=== PATIENT | female | born 1970 | race Caucasian/White ===

== ENCOUNTER → 2016-06-09 | Outpatient (CLI) | payer BC ==
[~2016-06-09] MED LIST: ALBUAER19 INH; AMIT25TA9 PO; ASTN; CLIN1LOT5 TOP; CLON1TAB3 PO; COLE1TAB PO; FLUC150T PO; FLUO20CA36 PO; HYDR25TA4 PO; INSU1INJ41 SQ; LISD40CA PO; LISI-725 PO; MEDR10TA PO; METF-384 PO; MIRT15TA3 PO; MOME50SP5 NAE; MULT-506 PO; OMEG10007 PO; OMEP20CA59 PO; ONDA4TAB7 SL; PSEU60TA80 PO; SPIR50TA3 PO; TRET0.1C42 TOP; VALA500T39 PO; VNTHFA/IN INH; [UNRECOGNIZED DRUG - CODE] TD
--- NOTE | 2016-06-09 11:31 | DIAGNOSTIC IMAGING REPORT ---
BILIARY ULTRASOUND CLINICAL HISTORY: NON INFECTIVE GASTROENTERITIS COMPARISON STUDY: CT scan dated 10/20/2014 FINDINGS: The study is limited from a technical standpoint secondary to the patient's large body habitus. The pancreas appear normal as visualized but visualization was limited. There is no right-sided hydronephrosis. The liver appears enlarged with increased echogenicity. It was difficult to penetrate. There are no focal hepatic masses. No gallstones are identified. There is no ductal dilatation. The common bile duct measured 4 mm. There is no right-sided hydronephrosis. IMPRESSION: 1. Moderately limited study from a technical standpoint 2. No gallstones identified. No evidence of ductal dilatation 3. Increased hepatic echogenicity. Hepatomegaly. Electronically signed by: Renan Fitzgerald M.D. 06/09/2016 11:29 AM Dictated Date/Time: 06/09/2016 11:27 AM
== END | disposition home or self-care (01) ==
LOC: C.ULTR 10:46
PROVIDERS: ATTEND Family Medicine
DX: K52.9 Noninfective gastroenteritis and colitis, unspecified (principal); R74.0 Nonspecific elevation of levels of transaminase and lactic acid dehydrogenase [LDH]; E28.2 Polycystic ovarian syndrome

== ENCOUNTER → 2016-06-11 | Outpatient (CLI) | payer BC | END | disposition home or self-care (01) | LOC: C.PAPS 10:24 | PROVIDERS: ATTEND Obstetrics & Gynecology | DX: Z11.3 Encounter for screening for infections with a predominantly sexual mode of transmission (principal) ==

== ENCOUNTER → 2016-07-18 | Outpatient (CLI) | payer BC ==
[~2016-07-18] MED LIST changes: -ASTN; +BUSP15TA70 PO; -FLUO20CA36 PO; -LISD40CA PO; -MIRT15TA3 PO; -ONDA4TAB7 SL; -[UNRECOGNIZED DRUG - CODE] TD
== END | disposition home or self-care (01) ==
LOC: C.LAB1850 07:03
PROVIDERS: ATTEND Internal Medicine Endocrinology, Diabetes & Metabolism
DX: E28.2 Polycystic ovarian syndrome (principal)

== ENCOUNTER → 2016-08-07 | Day surgery (SDC) | payer BC ==
[2016-07-11 13:08] VITALS: Ht 167.6 cm; Wt 138.6 kg
[~2016-08-07] VITALS: Ht 167.6 cm; Wt 138.6 kg
[~2016-08-07] MED LIST changes: +ATROPINE SULFATE 0.1 MG/ML 5ML SYR IV PRN; +EpHEDrine SULFATE INJ 50 MG/ML AMP IV PRN; +LIDOCAINE HCL 2% 2 ML VIAL (20MG/ML) ONE; +PROPOFOL IV EMULSION 10 MG/ML 20 ML VIAL IV ONE; +SODIUM CHLORIDE 0.9% 500ML 500 ML IV ONE
[2016-08-07 13:19] VITALS: TEMP 37.1
--- NOTE | 2016-08-07 13:56 | Endo History and Physical ---
History & Physical Date of Service: Aug 07, 2016. Chief Complaint: DYSPHAGIA Referring Physician: DR. GARCIA History of Present Illness dysphagia; diarrhea Past Medical History Asthma, Anxiety, Gynecological Problems, High Cholesterol, Sleep Apnea, Depression Past Surgical History Hx Cardiac Surgery: No Hx Internal Defibrillator: No Hx Pacemaker: No Hx Abdominal Surgery: Yes (SPLEENECTOMY, LAPAROSCOPIES) Hx of Implantable Prosthesis: No Hx Post-Op Nausea and Vomiting: No Hx Cancer Surgery: No Hx Thoracic Surgery: No Hx Orthopedic: No Hx Urinary Tract Surgery: No Family History IBD Social History Smoking Status: Never Smoker Hx Substance Use: No Hx Alcohol Use: Yes (OCCASIONAL) Allergies Coded Allergies: Penicillins (Verified Allergy, Severe, FACIAL SWELLING, RASH, 08/07/16) Current Medications Reported Home Medications Medications Dose Route/Sig Max Daily Dose Days Date Category Mucinex D (Pseudoephedrine-Guaifenesin) 1 Tab Tab 1 Tab PO BID 10 08/07/16 Reported Tretinoin 0.1 % Cre 1 Appln TOP HS 07/11/16 Reported Clindamycin Phosphate (Clindamycin Phosphate (Topical) 1 % Lot 1 Appln TOP BID 07/11/16 Reported Elavil (Amitriptyline Hcl) 25 Mg Tab 25 Mg PO HS 07/11/16 Reported Klonopin (Clonazepam) 1 Mg Tab 2 Tabs PO HS 07/11/16 Reported Diflucan (Fluconazole) 150 Mg Tab 150 Mg PO UD PRN 07/11/16 Reported Zestril (Lisinopril) 20 Mg Tab 20 Mg PO QAM 07/11/16 Reported Hctz (Hydrochlorothiazide) 25 Mg Tab 25 Mg PO QAM 07/11/16 Reported Glucophage (Metformin Hcl) 1,000 Mg Tab 1,000 Mg PO BID 10/20/14 Reported [place]-3 (Fish Oil) 1 Ea Cap 1 Cap PO AFTERNOON 09/27/14 Reported Ventolin Inhaler (Albuterol) Aers 2 Puffs INH BID PRN 09/27/14 Reported Multivitamin (Multivitamins) Tab 1 Tab PO AFTERNOON 09/27/14 Reported Aldactone (Spironolactone) 50 Mg Tab 50 Mg PO BID 09/25/14 Reported Valtrex (Valacyclovir Hcl) 500 Mg Tab 500 Mg PO BID 09/25/14 Reported Prilosec (Omeprazole) 20 Mg Capcr 20 Mg PO BID 09/25/14 Reported Nasonex (Mometasone Furoate) [place] 1-2 Sprays REBECCA QAM 09/25/14 Reported Vital Signs Weight (Kilograms): 138.64 Height (Feet): 5 Height (Inches): 6 Date Time Temp Pulse Resp B/P Pulse Ox O2 Delivery O2 Flow Rate FiO2 08/07/16 13:19 37.1 102 20 109/54 94 Room Air Physical Exam AAOx3 Nls1s2 Lungs CTA Abd soft NT/ND + BS - CCe Assessment and Plan EGD today with bx
--- NOTE | 2016-08-07 14:26 | GI REPORT ---
Procedure Date: 08/07/2016 2:02 PM Procedure: Upper GI endoscopy Indications: Esophageal dysphagia, Diarrhea Medicines: Propofol per Anesthesia Complications: No immediate complications. Estimated blood loss: Minimal. Estimated Blood Loss: Estimated blood loss was minimal. Procedure: Pre-Anesthesia Assessment: - Prior to the procedure, a History and Physical was performed, and patient medications and allergies were reviewed. The patient's tolerance of previous anesthesia was also reviewed. The risks and benefits of the procedure and the sedation options and risks were discussed with the patient. All questions were answered, and informed consent was obtained. Prior Anticoagulants: The patient has taken no previous anticoagulant or antiplatelet agents. ASA Grade Assessment: III - A patient with severe systemic disease. After reviewing the risks and benefits, the patient was deemed in satisfactory condition to undergo the procedure. After obtaining informed consent, the endoscope was passed under direct vision. Throughout the procedure, the patient's blood pressure, pulse, and oxygen saturations were monitored continuously. The On-site loaner was introduced through the mouth, and advanced to the second part of duodenum. The upper GI endoscopy was accomplished without difficulty. The patient tolerated the procedure well. Findings: The upper third of the esophagus and middle third of the esophagus were normal. The esophagus and gastroesophageal junction were examined with white light. 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 These changes involved the mucosa at the upper extent of the gastric folds (36 cm from the incisors) extending to the Z-line (35 cm from the incisors). Hiatal narrowing was identified at 37 cm. The maximum longitudinal extent of these esophageal mucosal changes was 1 cm in length. Biopsies were taken with a cold forceps for histology. Estimated blood loss was minimal. Verification of patient identification for the specimen was done by the physician and electronics repair technician using the patient's name and medical record number. Localized mild inflammation characterized by erythema was found in the gastric antrum. Biopsies were taken with a cold forceps for histology. The examined duodenum was normal. Biopsies for histology were taken with a cold forceps for evaluation of celiac disease. Estimated blood loss was minimal. Verification of patient identification for the specimen was done by the physician and electronics repair technician using the patient's name and medical record number. The cardia and gastric fundus were normal on retroflexion. Impression: - Normal upper third of esophagus and middle third of esophagus. 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 Biopsied. - Gastritis. Biopsied. - Normal examined duodenum. Biopsied. Recommendation: - Discharge patient to home (ambulatory). - Patient has a contact number available for emergencies. The signs and symptoms of potential delayed complications were discussed with the patient. Return to normal activities tomorrow. Written discharge instructions were provided to the patient. - Resume regular diet. - Await pathology results. - Continue present medications. - Return to referring physician as previously scheduled. MD Nahum Javier MD 08/07/2016 2:25:00 PM This report has been signed electronically. Note Initiated On: 08/07/2016 2:02 PM I attest to the content of the Intraoperative Record and orders documented therein, exceptions below
--- NOTE | 2016-08-07 14:29 | Discharge Instructions ---
Endoscopy Patient Instructions Date / Procedure(s) Performed Aug 07, 2016. EGD Allergy Information Coded Allergies: Penicillins (Verified Allergy, Severe, FACIAL SWELLING, RASH, 08/07/16) Discharge Date / Findings Aug 07, 2016. possible SSBE; gastritis Medication Instructions Restart Stopped Medication(s): Reported Home Medications Medications Dose Route/Sig Max Daily Dose Days Date Category Mucinex D (Pseudoephedrine-Guaifenesin) 1 Tab Tab 1 Tab PO BID 10 08/07/16 Reported Tretinoin 0.1 % Cre 1 Appln TOP HS 07/11/16 Reported Clindamycin Phosphate (Clindamycin Phosphate (Topical) 1 % Lot 1 Appln TOP BID 07/11/16 Reported Elavil (Amitriptyline Hcl) 25 Mg Tab 25 Mg PO HS 07/11/16 Reported Klonopin (Clonazepam) 1 Mg Tab 2 Tabs PO HS 07/11/16 Reported Diflucan (Fluconazole) 150 Mg Tab 150 Mg PO UD PRN 07/11/16 Reported Zestril (Lisinopril) 20 Mg Tab 20 Mg PO QAM 07/11/16 Reported Hctz (Hydrochlorothiazide) 25 Mg Tab 25 Mg PO QAM 07/11/16 Reported Glucophage (Metformin Hcl) 1,000 Mg Tab 1,000 Mg PO BID 10/20/14 Reported [place]-3 (Fish Oil) 1 Ea Cap 1 Cap PO AFTERNOON 09/27/14 Reported Ventolin Inhaler (Albuterol) Aers 2 Puffs INH BID PRN 09/27/14 Reported Multivitamin (Multivitamins) Tab 1 Tab PO AFTERNOON 09/27/14 Reported Aldactone (Spironolactone) 50 Mg Tab 50 Mg PO BID 09/25/14 Reported Valtrex (Valacyclovir Hcl) 500 Mg Tab 500 Mg PO BID 09/25/14 Reported Prilosec (Omeprazole) 20 Mg Capcr 20 Mg PO BID 09/25/14 Reported Nasonex (Mometasone Furoate) [place] 1-2 Sprays REBECCA QAM 09/25/14 Reported Reported Home Medications Medications Dose Route/Sig Max Daily Dose Days Date Category Mucinex D (Pseudoephedrine-Guaifenesin) 1 Tab Tab 1 Tab PO BID 10 08/07/16 Reported Tretinoin 0.1 % Cre 1 Appln TOP HS 07/11/16 Reported Clindamycin Phosphate (Clindamycin Phosphate (Topical) 1 % Lot 1 Appln TOP BID 07/11/16 Reported Elavil (Amitriptyline Hcl) 25 Mg Tab 25 Mg PO HS 07/11/16 Reported Klonopin (Clonazepam) 1 Mg Tab 2 Tabs PO HS 07/11/16 Reported Diflucan (Fluconazole) 150 Mg Tab 150 Mg PO UD PRN 07/11/16 Reported Zestril (Lisinopril) 20 Mg Tab 20 Mg PO QAM 07/11/16 Reported Hctz (Hydrochlorothiazide) 25 Mg Tab 25 Mg PO QAM 07/11/16 Reported Glucophage (Metformin Hcl) 1,000 Mg Tab 1,000 Mg PO BID 10/20/14 Reported [place]-3 (Fish Oil) 1 Ea Cap 1 Cap PO AFTERNOON 09/27/14 Reported Ventolin Inhaler (Albuterol) Aers 2 Puffs INH BID PRN 09/27/14 Reported Multivitamin (Multivitamins) Tab 1 Tab PO AFTERNOON 09/27/14 Reported Aldactone (Spironolactone) 50 Mg Tab 50 Mg PO BID 09/25/14 Reported Valtrex (Valacyclovir Hcl) 500 Mg Tab 500 Mg PO BID 09/25/14 Reported Prilosec (Omeprazole) 20 Mg Capcr 20 Mg PO BID 09/25/14 Reported Nasonex (Mometasone Furoate) [place] 1-2 Sprays REBECCA QA 09/25/14 Reported Reported Home Medications Medications Dose Route/Sig Max Daily Dose Days Date Category Mucinex D (Pseudoephedrine-Guaifenesin) 1 Tab Tab 1 Tab PO BID 10 08/07/16 Reported Tretinoin 0.1 % Cre 1 Appln TOP HS 07/11/16 Reported Clindamycin Phosphate (Clindamycin Phosphate (Topical) 1 % Lot 1 Appln TOP BID 07/11/16 Reported Elavil (Amitriptyline Hcl) 25 Mg Tab 25 Mg PO HS 07/11/16 Reported Klonopin (Clonazepam) 1 Mg Tab 2 Tabs PO HS 07/11/16 Reported Diflucan (Fluconazole) 150 Mg Tab 150 Mg PO UD PRN 07/11/16 Reported Zestril (Lisinopril) 20 Mg Tab 20 Mg PO QAM 07/11/16 Reported Hctz (Hydrochlorothiazide) 25 Mg Tab 25 Mg PO QAM 07/11/16 Reported Glucophage (Metformin Hcl) 1,000 Mg Tab 1,000 Mg PO BID 10/20/14 Reported [place]-3 (Fish Oil) 1 Ea Cap 1 Cap PO AFTERNOON 09/27/14 Reported Ventolin Inhaler (Albuterol) Aers 2 Puffs INH BID PRN 09/27/14 Reported Multivitamin (Multivitamins) Tab 1 Tab PO AFTERNOON 09/27/14 Reported Aldactone (Spironolactone) 50 Mg Tab 50 Mg PO BID 09/25/14 Reported Valtrex (Valacyclovir Hcl) 500 Mg Tab 500 Mg PO BID 09/25/14 Reported Prilosec (Omeprazole) 20 Mg Capcr 20 Mg PO BID 09/25/14 Reported Nasonex (Mometasone Furoate) [place] 1-2 Sprays REBECCA QAM 09/25/14 Reported Provider Instructions Activity Restrictions - No exercising or heavy lifting for 24 hours. - Do not drink alcohol the day of the procedure. - Do not drive a car or operate machinery until the day after the procedure. - Do not make any important decisions or sign important papers in 24 hours after the procedure. Following Day: - Return to full activity which may include returning to work/school. Diet Start your diet with liquids and light foods (jello, soup, juice, toast). Then eat your usual diet if not nauseated. Treatment For Common After Affects For mild abdominal pain, bloating, or excessive gas: - Rest - Eat lightly - Lie on right side Follow-Up Information Follow-up with DR. GARCIA as scheduled Anesthesia Information What You Should Know You have had a procedure that required some medicine to reduce anxiety and discomfort. This treatment is called moderate sedation. After receiving the treatment, you may be sleepy, but you will be able to breathe on your own. The effects of the treatment may last for several hours. Follow these instructions along with Activity/Diet recommendations noted above: * Do NOT do anything where dizziness or clumsiness would be dangerous. * Rest quietly at home today, then you can be up and about tomorrow. * Have a responsible person stay with you the rest of today. * You may have had an I.V. today. If so, you may take the dressing off later today. Recommendations Call your doctor if: * Trouble breathing * Continuous vomiting for more than 24 hours * Temperature above 101 degrees * Severe abdominal pain or bloating * Pain not relieved by pain medicine ordered * There is increased drainage or redness from any incision * A large amount of rectal bleeding greater than 2-3 tablespoons. (If you had a polyp/s removed or have hemorrhoids, a small amount of blood - from the rectum is to be expected.) * You have any unanswered questions or concerns. IN THE EVENT OF A SERIOUS EMERGENCY, GO TO THE NEAREST EMERGENCY ROOM Your discharge instructions were prepared by provider Nahum Agee. Patient Instructions Signature Page Nicki Blanchard Patient (or Guardian) Signature/Date: I have read and understand the instructions given to me by my caregivers. Caregiver/RN/Doctor Signature/Date: The above-named patient and/or guardian has received patient instructions on this date. + Original Patient Signature Page (only) stays with chart. Please make copy for patient.
--- NOTE | 2016-08-07 14:46 | Anesthesiology Progress Note ---
Anesthesia Post Op Note Date & Time Aug 07, 2016 at 14:45 Vital Signs Pain Intensity: 0 Vital Signs Past 12 Hours Date Time Temp Pulse Resp B/P Pulse Ox O2 Delivery O2 Flow Rate FiO2 08/07/16 14:25 101 20 95/51 95 Room Air 08/07/16 13:19 37.1 102 20 109/54 94 Room Air Notes Mental Status: alert / awake / arousable, participated in evaluation Pt Amnestic to Procedure: Yes Nausea / Vomiting: adequately controlled Pain: adequately controlled Airway Patency, RR, SpO2: stable & adequate BP & HR: stable & adequate Hydration State: stable & adequate Anesthetic Complications: no major complications apparent
[2016-08-07 14:54] VITALS: BP 99/66; PULSE 97; O2SAT 95
== END | disposition home or self-care (01) ==
LOC: C.GI 12:53
PROVIDERS: ATTEND Internal Medicine Gastroenterology
DX: R13.10 Dysphagia, unspecified (principal); R19.7 Diarrhea, unspecified; K29.60 Other gastritis without bleeding; E78.00 Pure hypercholesterolemia, unspecified; G47.30 Sleep apnea, unspecified; F32.9 Major depressive disorder, single episode, unspecified; J45.909 Unspecified asthma, uncomplicated

== ENCOUNTER → 2016-09-16 | Outpatient (CLI) | payer BC ==
[~2016-09-16] MED LIST changes: -ATROPINE SULFATE 0.1 MG/ML 5ML SYR IV PRN; -EpHEDrine SULFATE INJ 50 MG/ML AMP IV PRN; -LIDOCAINE HCL 2% 2 ML VIAL (20MG/ML) ONE; -MEDR10TA PO; -PROPOFOL IV EMULSION 10 MG/ML 20 ML VIAL IV ONE; -SODIUM CHLORIDE 0.9% 500ML 500 ML IV ONE
== END | disposition home or self-care (01) ==
LOC: C.LAB1850 11:37
PROVIDERS: ATTEND Obstetrics & Gynecology
DX: N91.2 Amenorrhea, unspecified (principal)

== ENCOUNTER → 2016-09-29 | Outpatient (CLI) | payer BC ==
--- NOTE | 2016-09-29 10:19 | DIAGNOSTIC IMAGING REPORT ---
RIGHT ANKLE MIN 3 VIEWS ROUTINE CLINICAL HISTORY: RIGHT ANKLE PAIN Right pain COMPARISON: None. DISCUSSION: Small heel spur. Soft tissue edema adjacent to the lateral malleolus. No acute bony abnormality. Ankle mortise is aligned anatomically . IMPRESSION: Mild soft tissue edema. Small heel spur. No acute bony abnormality. Electronically signed by: Duncan Meyers M.D. 09/29/2016 10:18 AM Dictated Date/Time: 09/29/2016 10:17 AM
== END | disposition home or self-care (01) ==
LOC: C.LAB1850 07:00
PROVIDERS: ATTEND Internal Medicine Endocrinology, Diabetes & Metabolism
DX: M25.571 Pain in right ankle and joints of right foot (principal); F41.9 Anxiety disorder, unspecified; F32.9 Major depressive disorder, single episode, unspecified; R73.9 Hyperglycemia, unspecified; I10 Essential (primary) hypertension; E11.65 Type 2 diabetes mellitus with hyperglycemia; R79.89 Other specified abnormal findings of blood chemistry; E78.5 Hyperlipidemia, unspecified; M77.31 Calcaneal spur, right foot

== ENCOUNTER → 2016-09-30 | Outpatient (CLI) | payer BC ==
[2016-09-30 12:30] LABS: HEMATOCRIT 40.5 % (37-47)
[2016-09-30 13:08] LABS: ALB/GLOB RATIO 0.8 (0.9-2); ALKALINE PHOSPHATASE 100 U/L (45-117); ALT/SGPT 68 U/L (12-78); AST/SGOT 52 U/L (15-37); BLOOD UREA NITROGEN 13 mg/dl (7-18); BUN/CREATININE RATIO 19.2 (10-20); CARBON DIOXIDE 26 mmol/L (21-32); CHLORIDE 104 mmol/L (98-107); CHOLESTEROL 209 mg/dl (0-200); CHOLESTEROL/HDL RATIO 4.3; GLUCOSE 128 mg/dl (70-99); HDL CHOLESTEROL 49 mg/dl; LDL CHOLESTEROL CALCULATED 122 mg/dl; POTASSIUM 4.1 mmol/L (3.5-5.1); SODIUM 139 mmol/L (136-145); TRIGLYCERIDES 188 mg/dl (0-150); VERY LOW DENSITY LIPOPROT CALC 38 mg/dl
[2016-09-30 13:22] LABS: ESTIMATED AVERAGE GLUCOSE 197 mg/dl; HA1C FLAG Normal (Normal)
== END | disposition home or self-care (01) ==
LOC: C.LAB1850 09:36
PROVIDERS: ATTEND Internal Medicine Endocrinology, Diabetes & Metabolism
DX: I10 Essential (primary) hypertension (principal); R79.89 Other specified abnormal findings of blood chemistry; E11.65 Type 2 diabetes mellitus with hyperglycemia

== ENCOUNTER → 2016-12-31 | Outpatient (CLI) | payer BC ==
--- NOTE | 2017-01-01 12:38 | MAMMOGRAPHY REPORT ---
BILATERAL DIGITAL SCREENING MAMMOGRAM TOMOSYNTHESIS WITH CAD: 12/31/2016 CLINICAL HISTORY: Routine screening. Patient has no complaints. TECHNIQUE: Breast tomosynthesis in addition to standard 2D mammography was performed. Current study was also evaluated with a Computer Aided Detection (CAD) system. COMPARISON: Comparison is made to exams dated: 08/13/2011 mammogram, 12/08/2012 mammogram, 12/14/2013 giana mogram, 12/20/2014 mammogram, and 12/26/2015 mammogram - [facility]. BREAST COMPOSITION: The tissue of both breasts is almost entirely fatty. FINDINGS: No suspicious mass, architectural distortion or cluster of microcalcifications is seen. IMPRESSION: ACR BI-RADS CATEGORY 1: NEGATIVE There is no mammographic evidence of malignancy. A 1 year screening mammogram is recommended. The pa tient will receive written notification of the results. Approximately 10% of breast cancers are not detected with mammography. A negative mammographic report should not delay biopsy if a clinically suggestive mass is present. Nany tolentino/penannabelle:12/31/2016 17:10:27 Dye House Helper: Ericka ROBERT(Lindsay)(M), [facility] letter sent: Normal 1/2 BI-RADS Code: ACR BI-RADS Category 1: Negative
== END | disposition home or self-care (01) ==
LOC: C.MAMM 16:50
PROVIDERS: ATTEND Family Medicine
DX: Z12.31 Encounter for screening mammogram for malignant neoplasm of breast (principal)

== ENCOUNTER → 2017-01-21 | Day surgery (SDC) | payer BC ==
[2017-01-05 12:58] VITALS: Ht 167.6 cm; Wt 138.6 kg
[~2017-01-21] VITALS: Ht 167.6 cm; Wt 138.6 kg
[~2017-01-21] MED LIST changes: -ALBUAER19 INH; +LIDOCAINE HCL 2% 2 ML VIAL (20MG/ML) ONE; -MOME50SP5 NAE; +PROPOFOL IV EMULSION 10 MG/ML 20 ML VIAL IV ONE; -PSEU60TA80 PO; +SODIUM CHLORIDE 0.9% 500ML 500 ML IV ONE
--- NOTE | 2017-01-21 15:12 | Endo History and Physical ---
History & Physical Date of Service: Jan 21, 2017. Chief Complaint: change in bowel habits Referring Physician: Emmett Fuentes History of Present Illness change in bowel habits Past Medical History Asthma, Anxiety, Gynecological Problems, High Cholesterol, Sleep Apnea, Depression Past Surgical History Hx Cardiac Surgery: No Hx Internal Defibrillator: No Hx Pacemaker: No Hx Abdominal Surgery: Yes (SPLEENECTOMY, LAPAROSCOPIES) Hx Post-Op Nausea and Vomiting: No Hx Cancer Surgery: No Hx Thoracic Surgery: No Hx Orthopedic: No Hx Urinary Tract Surgery: No Family History IBD Social History Smoking Status: Never Smoker Hx Substance Use: No Hx Alcohol Use: Yes (OCCASIONAL) Allergies Coded Allergies: Penicillins (Verified Allergy, Severe, FACIAL SWELLING, RASH, 01/21/17) Current Medications Reported Home Medications Medications Dose Route/Sig Max Daily Dose Days Date Category Buspar (Buspirone Hcl) 15 Mg Tab 1 Tab PO BID 30 01/21/17 Reported Ventolin Hfa (Albuterol) 200 Puffs/88002 Mcg Aers 2-4 Puffs INH Q6H PRN 01/05/17 Reported Colestid (Colestipol Hcl) 1 Gm Tab 1 Gm PO QAM 01/05/17 Reported [place] 100/33 100-33 Unt-Mcg/ml (Insulin Glargine-Lixisenatide) 1 Inj Inj 1 Dose SQ QAM 01/05/17 Reported Tretinoin 0.1 % Cre 1 Appln TOP HS 07/11/16 Reported Clindamycin Phosphate (Clindamycin Phosphate (Topical) 1 % Lot 1 Appln TOP BID 07/11/16 Reported Elavil (Amitriptyline Hcl) 25 Mg Tab 25 Mg PO HS 07/11/16 Reported Klonopin (Clonazepam) 1 Mg Tab 2 Tabs PO HS 07/11/16 Reported Diflucan (Fluconazole) 150 Mg Tab 150 Mg PO UD PRN 07/11/16 Reported Zestril (Lisinopril) 20 Mg Tab 20 Mg PO QAM 07/11/16 Reported Hctz (Hydrochlorothiazide) 25 Mg Tab 25 Mg PO QAM 07/11/16 Reported Glucophage (Metformin Hcl) 1,000 Mg Tab 1,000 Mg PO BID 10/20/14 Reported [place]-3 (Fish Oil) 1 Ea Cap 1 Cap PO AFTERNOON 09/27/14 Reported Multivitamin (Multivitamins) Tab 1 Tab PO QAM 09/27/14 Reported Aldactone (Spironolactone) 50 Mg Tab 50 Mg PO BID 09/25/14 Reported Valtrex (Valacyclovir Hcl) 500 Mg Tab 500 Mg PO BID 09/25/14 Reported Prilosec (Omeprazole) 20 Mg Capcr 20 Mg PO BID 09/25/14 Reported Vital Signs Weight (Kilograms): 138.64 Height (Feet): 5 Height (Inches): 6 Date Time Temp Pulse Resp B/P (MAP) Pulse Ox O2 Delivery O2 Flow Rate FiO2 01/21/17 14:05 36.6 112 20 138/66 (90) 95 Room Air Physical Exam General Appearance: WD/WN, no apparent distress Respiratory/Chest: Auscultation: breath sounds normal Cardiovascular: Heart Auscultation: RRR Abdomen: Bowel Sounds: normal Inspection & Palpation: soft, non-distended, no tenderness, guarding & rebound Assessment and Plan AAOx3. Consent obtained colonoscopy with biopsies
--- NOTE | 2017-01-21 15:53 | Discharge Instructions ---
Endoscopy Patient Instructions Date / Procedure(s) Performed Jan 21, 2017. Colonoscopy Allergy Information Coded Allergies: Penicillins (Verified Allergy, Severe, FACIAL SWELLING, RASH, 01/21/17) Discharge Date / Findings Jan 21, 2017. small polyp rectum . removed random colon bx Medication Instructions Stopped Medication(s): Meds stopped on 01/18/17: Metformin [place]on 3 Multivitamin Aldactone Restart Stopped Medication(s): Reported Home Medications Medications Dose Route/Sig Max Daily Dose Days Date Category Buspar (Buspirone Hcl) 15 Mg Tab 1 Tab PO BID 30 01/21/17 Reported Ventolin Hfa (Albuterol) 200 Puffs/21317 Mcg Aers 2-4 Puffs INH Q6H PRN 01/05/17 Reported Colestid (Colestipol Hcl) 1 Gm Tab 1 Gm PO QAM 01/05/17 Reported Soliqua 100/33 100-33 Unt-Mcg/ml (Insulin Glargine-Lixisenatide) 1 Inj Inj 1 Dose SQ QAM 01/05/17 Reported Tretinoin 0.1 % Cre 1 Appln TOP HS 07/11/16 Reported Clindamycin Phosphate (Clindamycin Phosphate (Topical) 1 % Lot 1 Appln TOP BID 07/11/16 Reported Elavil (Amitriptyline Hcl) 25 Mg Tab 25 Mg PO HS 07/11/16 Reported Klonopin (Clonazepam) 1 Mg Tab 2 Tabs PO HS 07/11/16 Reported Diflucan (Fluconazole) 150 Mg Tab 150 Mg PO UD PRN 07/11/16 Reported Zestril (Lisinopril) 20 Mg Tab 20 Mg PO QAM 07/11/16 Reported Hctz (Hydrochlorothiazide) 25 Mg Tab 25 Mg PO QAM 07/11/16 Reported Glucophage (Metformin Hcl) 1,000 Mg Tab 1,000 Mg PO BID 10/20/14 Reported Afton-3 (Fish Oil) 1 Ea Cap 1 Cap PO AFTERNOON 09/27/14 Reported Multivitamin (Multivitamins) Tab 1 Tab PO QAM 09/27/14 Reported Aldactone (Spironolactone) 50 Mg Tab 50 Mg PO BID 09/25/14 Reported Valtrex (Valacyclovir Hcl) 500 Mg Tab 500 Mg PO BID 09/25/14 Reported Prilosec (Omeprazole) 20 Mg Capcr 20 Mg PO BID 09/25/14 Reported Provider Instructions Activity Restrictions - No exercising or heavy lifting for 24 hours. - Do not drink alcohol the day of the procedure. - Do not drive a car or operate machinery until the day after the procedure. - Do not make any important decisions or sign important papers in 24 hours after the procedure. Following Day: - Return to full activity which may include returning to work/school. Diet Start your diet with liquids and light foods (jello, soup, juice, toast). Then eat your usual diet if not nauseated. Treatment For Common After Affects For mild abdominal pain, bloating, or excessive gas: - Rest - Eat lightly - Lie on right side Reported Home Medications Medications Dose Route/Sig Max Daily Dose Days Date Category Buspar (Buspirone Hcl) 15 Mg Tab 1 Tab PO BID 30 01/21/17 Reported Ventolin Hfa (Albuterol) 200 Puffs/95790 Mcg Aers 2-4 Puffs INH Q6H PRN 01/05/17 Reported Colestid (Colestipol Hcl) 1 Gm Tab 1 Gm PO QAM 01/05/17 Reported Soliqua 100/33 100-33 Unt-Mcg/ml (Insulin Glargine-Lixisenatide) 1 Inj Inj 1 Dose SQ QAM 01/05/17 Reported Tretinoin 0.1 % Cre 1 Appln TOP HS 07/11/16 Reported Clindamycin Phosphate (Clindamycin Phosphate (Topical) 1 % Lot 1 Appln TOP BID 07/11/16 Reported Elavil (Amitriptyline Hcl) 25 Mg Tab 25 Mg PO HS 07/11/16 Reported Klonopin (Clonazepam) 1 Mg Tab 2 Tabs PO HS 07/11/16 Reported Diflucan (Fluconazole) 150 Mg Tab 150 Mg PO UD PRN 07/11/16 Reported Zestril (Lisinopril) 20 Mg Tab 20 Mg PO QAM 07/11/16 Reported Hctz (Hydrochlorothiazide) 25 Mg Tab 25 Mg PO QAM 07/11/16 Reported Glucophage (Metformin Hcl) 1,000 Mg Tab 1,000 Mg PO BID 10/20/14 Reported Afton-3 (Fish Oil) 1 Ea Cap 1 Cap PO AFTERNOON 09/27/14 Reported Multivitamin (Multivitamins) Tab 1 Tab PO QAM 09/27/14 Reported Aldactone (Spironolactone) 50 Mg Tab 50 Mg PO BID 09/25/14 Reported Valtrex (Valacyclovir Hcl) 500 Mg Tab 500 Mg PO BID 09/25/14 Reported Prilosec (Omeprazole) 20 Mg Capcr 20 Mg PO BID 09/25/14 Reported Follow-Up Information Follow-up with Emmett Fuentes as scheduled Anesthesia Information What You Should Know You have had a procedure that required some medicine to reduce anxiety and discomfort. This treatment is called moderate sedation. After receiving the treatment, you may be sleepy, but you will be able to breathe on your own. The effects of the treatment may last for several hours. Follow these instructions along with Activity/Diet recommendations noted above: * Do NOT do anything where dizziness or clumsiness would be dangerous. * Rest quietly at home today, then you can be up and about tomorrow. * Have a responsible person stay with you the rest of today. * You may have had an I.V. today. If so, you may take the dressing off later today. Recommendations Call your doctor if: * Trouble breathing * Continuous vomiting for more than 24 hours * Temperature above 101 degrees * Severe abdominal pain or bloating * Pain not relieved by pain medicine ordered * There is increased drainage or redness from any incision * A large amount of rectal bleeding greater than 2-3 tablespoons. (If you had a polyp/s removed or have hemorrhoids, a small amount of blood - from the rectum is to be expected.) * You have any unanswered questions or concerns. IN THE EVENT OF A SERIOUS EMERGENCY, GO TO THE NEAREST EMERGENCY ROOM Your discharge instructions were prepared by provider Nahum Agee. Patient Instructions Signature Page Nicki Blanchard Patient (or Guardian) Signature/Date: I have read and understand the instructions given to me by my caregivers. Caregiver/RN/Doctor Signature/Date: The above-named patient and/or guardian has received patient instructions on this date. + Original Patient Signature Page (only) stays with chart. Please make copy for patient.
--- NOTE | 2017-01-21 15:55 | Anesthesiology Progress Note ---
Anesthesia Post Op Note Date & Time Jan 21, 2017 at 15:54 Vital Signs Pain Intensity: 0 Vital Signs Past 12 Hours Date Time Temp Pulse Resp B/P (MAP) Pulse Ox O2 Delivery O2 Flow Rate FiO2 01/21/17 15:43 101 16 90/59 (69) 94 Room Air 01/21/17 14:05 36.6 112 20 138/66 (90) 95 Room Air Notes Mental Status: alert / awake / arousable, participated in evaluation Pt Amnestic to Procedure: Yes Nausea / Vomiting: adequately controlled Pain: adequately controlled Airway Patency, RR, SpO2: stable & adequate BP & HR: stable & adequate Hydration State: stable & adequate Anesthetic Complications: no major complications apparent
[2017-01-21 16:18] VITALS: BP 122/71; PULSE 100; O2SAT 94
--- NOTE | 2017-01-21 16:21 | GI REPORT ---
Procedure Date: 01/21/2017 2:57 PM Procedure: Colonoscopy Indications: Chronic diarrhea, Change in bowel habits Medicines: Propofol per Anesthesia Complications: No immediate complications. Estimated blood loss: Minimal. Estimated Blood Loss: Estimated blood loss was minimal. Procedure: Pre-Anesthesia Assessment: - Prior to the procedure, a History and Physical was performed, and patient medications and allergies were reviewed. The patient's tolerance of previous anesthesia was also reviewed. The risks and benefits of the procedure and the sedation options and risks were discussed with the patient. All questions were answered, and informed consent was obtained. Prior Anticoagulants: The patient has taken no previous anticoagulant or antiplatelet agents. ASA Grade Assessment: III - A patient with severe systemic disease. After reviewing the risks and benefits, the patient was deemed in satisfactory condition to undergo the procedure. After I obtained informed consent, the scope was passed under direct vision. Throughout the procedure, the patient's blood pressure, pulse, and oxygen saturations were monitored continuously. The scope was introduced through the anus and advanced to the terminal ileum, with identification of the appendiceal orifice and IC valve. The colonoscopy was performed without difficulty. The patient tolerated the procedure well. The quality of the bowel preparation was good. Findings: The perianal and digital rectal examinations were normal. Pertinent negatives include normal sphincter tone, no palpable rectal lesions and no anal lesion or abnormality was detected. A 2 mm polyp was found in the rectum. The polyp was sessile. The polyp was removed with a cold biopsy forceps. Resection and retrieval were complete. Estimated blood loss was minimal. Verification of patient identification for the specimen was done by the physician and automated access systems technician using the patient's name and medical record number. The rectum, descending colon, ascending colon and ileum appeared normal. Biopsies were taken with a cold forceps for histology. Estimated blood loss was minimal. Verification of patient identification for the specimen was done by the physician and automated access systems technician using the patient's name and medical record number. The retroflexed view of the distal rectum and anal verge was normal and showed no anal or rectal abnormalities. Impression: - One 2 mm polyp in the rectum, removed with a cold biopsy forceps. Resected and retrieved. - The rectum, descending colon, ascending colon and terminal ileum are normal. Biopsied. - The distal rectum and anal verge are normal on retroflexion view. Recommendation: - Discharge patient to home (ambulatory). - Resume previous diet. - Continue present medications. - Await pathology results. - Repeat colonoscopy for surveillance based on pathology results. - Return to GI clinic as previously scheduled. MD Nahum Javier MD 01/21/2017 4:20:35 PM This report has been signed electronically. Note Initiated On: 01/21/2017 2:57 PM I attest to the content of the Intraoperative Record and orders documented therein, exceptions below
== END | disposition home or self-care (01) ==
LOC: C.GI 13:27
PROVIDERS: ATTEND Internal Medicine Gastroenterology
DX: R19.4 Change in bowel habit (principal); K52.9 Noninfective gastroenteritis and colitis, unspecified; K62.1 Rectal polyp; J45.909 Unspecified asthma, uncomplicated; I10 Essential (primary) hypertension; G47.33 Obstructive sleep apnea (adult) (pediatric); E78.00 Pure hypercholesterolemia, unspecified; F32.9 Major depressive disorder, single episode, unspecified; Z90.89 Acquired absence of other organs; E66.9 Obesity, unspecified; Z68.42 Body mass index [BMI] 45.0-49.9, adult; Z98.890 Other specified postprocedural states; Z88.0 Allergy status to penicillin; Z88.1 Allergy status to other antibiotic agents

== ENCOUNTER → 2017-12-02 | Outpatient (CLI) | payer OTHER ==
[~2017-12-02] MED LIST changes: +CLON1TAB10 PO; -CLON1TAB3 PO; -LIDOCAINE HCL 2% 2 ML VIAL (20MG/ML) ONE; -PROPOFOL IV EMULSION 10 MG/ML 20 ML VIAL IV ONE; -SODIUM CHLORIDE 0.9% 500ML 500 ML IV ONE; -SPIR50TA3 PO; +SPIR50TA5 PO; -VALA500T39 PO; +VALA500T41 PO
== END | disposition home or self-care (01) ==
LOC: C.PATHSPEC 15:36
PROVIDERS: ATTEND Obstetrics & Gynecology
DX: R87.89 Other abnormal findings in specimens from female genital organs (principal)

== ENCOUNTER 2020-08-13 16:40 | Inpatient (IN) ==
[2020-08-13] MEDS ORDERED: SODIUM CHLORIDE 0.9% 1000ML 1,000 ML IV SCH ×2 (17:00)
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
[2020-08-13 17:42] LABS: Hematocrit (blood only) 38.4 % (37-47); Hemoglobin 12.7 g/dL (12.0-16.0); Mean Corpuscular Hemoglobin 32.1 pg (25-34); Mean Corpuscular Hgb Conc 33.1 g/dL (32-36); Platelet Count 594 K/uL (130-400); RDW Coefficient of Variation 16.2 % (11.5-14.5); RDW Standard Deviation 57.2 fL (36.4-46.3); Red Blood Count 3.96 M/uL (4.2-5.4); White Blood Count 19.03 K/uL (4.8-10.8)
--- NOTE | 2020-08-13 17:47 | CT Scan Report ---
CT SCAN OF THE BRAIN WITHOUT IV CONTRAST CLINICAL HISTORY: Fall. Lightheadedness. COMPARISON STUDY: CT of the brain dated 09/25/2014. TECHNIQUE: Unenhanced axial CT scan of the brain is performed from the vertex to the skull base. A d ose lowering technique was utilized adhering to the principles of ALARA. The examination is degraded by motion artifact. The patient was scanned twice in an effort to improve image quality. CT DOSE: 2082.26 mGy.cm FINDINGS: Brain parenchyma: The brain parenchyma is normal in appearance. There is no hemorrhage, mass effect, or evidence of acute territorial ischemia by CT criteria. [place]-white matter differentiation is preser jean. No extra-axial fluid collection is seen. Ventricles, sulci, cisterns: Normal in configuration. Intracranial vasculature: The visualized intracranial vasculature at the skull base is normal in appe arance. Calvarium: There is no depressed calvarial fracture. Sinuses and mastoids: The paranasal sinuses are clear. The mastoid air cells are well pneumatized. Orbits: The bony orbits are grossly intact. IMPRESSION: No intracranial abnormality is identified. ACT 112: Negative or not required by law. Electronically signed by: Cam López M.D. 08/13/2020 5:46 PM
[2020-08-13 17:53] LABS: D Dimer 460 ug/L FEU (0-500); Partial Thromboplastin Ratio 0.9; Partial Thromboplastin Time 22.5 Seconds (21.0-31.0); Prothrombin Time 9.9 Seconds (9.0-12.0)
[2020-08-13] MEDS ORDERED: SODIUM CHLORIDE 0.9% 1000ML 1,000 ML IV ONE (17:56)
[2020-08-13] MEDS ORDERED: CEFEPIME 2,000 MG/20 ML VIAL IV STA (17:56)
[2020-08-13 18:00] LABS: Alanine Aminotransferase 38 U/L (12-78); Albumin Level 3.3 gm/dl (3.4-5.0); Aspartate Aminotransferase 28 U/L (15-37); BUN Creatinine Ratio 21.1 (10-20); Blood Urea Nitrogen 27 mg/dl (7-18); Calcium 9.1 mg/dl (8.5-10.1); Carbon Dioxide 23 mmol/L (21-32); Chloride 102 mmol/L (98-107); Creatinine Clr Calc Pharmacy 73.5 ml/min; Est GFR (African American) 56.3; Est GFR (Non-African American) 48.6; Glucose 151 mg/dl (70-99); Magnesium 2.1 mg/dl (1.8-2.4); Potassium 4.4 mmol/L (3.5-5.1); Sodium 134 mmol/L (136-145)
[2020-08-13 18:05] LABS: Albumin Globulin Ratio 0.8 (0.9-2); Alkaline Phosphatase 90 U/L (45-117); Bilirubin,Total 0.3 mg/dl (0.2-1); Globulin 4.1 gm/dl (2.5-4.0); Pregnancy Test, Serum Negative (Negative); Total Protein 7.4 gm/dl (6.4-8.2); Troponin I < 0.015 ng/ml (0-0.045)
--- NOTE | 2020-08-13 18:08 | XRay Report ---
RIGHT SHOULDER 3 VIEWS CLINICAL HISTORY: Fall with right shoulder pain. FINDINGS: 3 views of the right shoulder are obtained. No prior studies are available for comparison a t the time of dictation. The skeletal structures are well mineralized. There is no radiographic evide nce of fracture or dislocation. The glenohumeral articulation is maintained. Minimal productive martinez e is seen at the acromioclavicular joint. The overlying soft tissues are normal as imaged. The right lung parenchyma is clear as visualized. IMPRESSION: No acute bony abnormality is identified. Electronically signed by: Cam López M.D. 08/13/2020 6:06 PM
[2020-08-13 18:10] LABS: ALC (manual) 6.95 K/uL (1.2-3.4); ANC (manual) 9.93 K/uL (1.4-6.5); Basophils # (manual) 0.17 K/uL (0-0.2); Basophils % (manual) 0.9 %; Eosinophils # (manual) 0.99 K/uL (0-0.5); Eosinophils % (manual) 5.2 %; Lymphocytes # (manual) 6.95 K/uL (1.2-3.4); Lymphocytes % (manual) 36.5 %; Monocytes # (manual) 0.99 K/uL (0.11-0.59); Monocytes % (manual) 5.2 %; Neutrophils # (manual) 9.93 K/uL (1.4-6.5); Neutrophils % (manual) 52.2 %; RBC Morphology Unremarkable
--- NOTE | 2020-08-13 18:11 | XRay Report ---
SINGLE VIEW CHEST CLINICAL HISTORY: Sepsis. FINDINGS: An AP, portable, upright chest radiograph is compared to study dated 10/11/2015. The examina tion is degraded by portable technique, large body habitus, and patient rotation. The cardiomediast inal silhouette is unremarkable. There is mild bibasilar atelectasis. No airspace consolidation or la rge pleural effusion is identified. No pneumothorax is seen. The bony thorax is grossly intact. IMPRESSION: No acute cardiopulmonary abnormality. ACT 112: Negative or not required by law. Electronically signed by: Cam López M.D. 08/13/2020 6:09 PM
[2020-08-13 19:08] LABS: Influenza A virus by PCR Negative (Neg); Influenza B virus by PCR Negative (Neg); RSV by PCR Negative (Neg); SARS CoV2 RNA(COVID-19) InHosp NEGATIVE (Negative)
[2020-08-13] MEDS ORDERED: OPTIRAY 320 125ml IV ONE (19:59)
[2020-08-13 20:00] LABS: Appearance Urine Clear (Clear); Bilirubin Urine Negative (Negative); Blood Urine Negative (Negative); Color Urine Yellow; Glucose Urine UA Negative (Negative); Ketones Urine Negative (Negative); Leukocyte Esterase Urine Negative (Negative); Nitrite Urine Negative (Negative); Protein Urine Negative (Negative); Specific Gravity Urine 1.013 (1.000-1.030); Urobilinogen Urine Negative (Negative); pH Urine 5.5 (4.5-7.5)
--- NOTE | 2020-08-13 20:58 | CT Scan Report ---
CT ANGIOGRAM OF THE CHEST CLINICAL HISTORY: Hypoxia. Hypotension. COMPARISON STUDY: Chest x-ray dated 08/13/2020. TECHNIQUE: Following the IV administration of 110 cc of Optiray 350, CT angiogram of the chest was pe rformed from the upper abdomen to the thoracic inlet utilizing the pulmonary embolus protocol. Images are reviewed in the axial, sagittal, and coronal planes. 3-D MIPS images are created and assessed. I V contrast was administered without complication. A dose lowering technique was utilized adhering to the principles of ALARA. The examination is degraded by large body habitus, and by streak artifact f rom the body wall abutting the CT gantry. CT DOSE: 916.80 mGy.cm FINDINGS: Thyroid: Normal in size and heterogeneous in attenuation. Thoracic aorta: The thoracic aorta is normal in caliber and demonstrates standard 3-vessel arch anato my. No dissection is seen. Pulmonary vasculature: The pulmonary trunk is normal in caliber. There filling defects within the tadeo n, lobar, or proximal segmental pulmonary arteries to suggest pulmonary embolus. Evaluation of the pe ripheral branches is degraded by streak artifact. Heart: The heart is normal in size and without pericardial effusion. Lungs and pleural spaces: The lungs and pleural spaces are clear noting mild bibasilar atelectasis. T he trachea and central airways are patent. Mediastinum: There is no mediastinal lymphadenopathy. Shea: Clear. Axillae: There is no axillary lymphadenopathy. Upper abdomen: The liver is enlarged and steatotic. There is a small hiatal hernia. A normal spleen i s not identified. Splenules are noted in the left upper quadrant. Skeletal structures: No lytic or blastic bony lesions are seen. There are numerous healed left-sided rib fractures. IMPRESSION: 1. There is no evidence of pulmonary embolus in the main, lobar, or proximal segmental pulmonary mariana navdeep. 2. There is no airspace consolidation or pleural effusion. 3. Hepatomegaly and hepatic steatosis. 4. A normal spleen is not identified and there are splenules in the left upper quadrant. Correlate wi th the patient's operative history. ACT 112: Negative or not required by law. Electronically signed by: Cam López M.D. 08/13/2020 8:57 PM
[2020-08-13] MEDS ORDERED: ALBUTEROL HFA 8 GM INHALER INH PRN (22:42)
[2020-08-13] MEDS ORDERED: ACETAMINOPHEN 325 MG TAB PO PRN (22:42)
[2020-08-13] MEDS ORDERED: POLYETHYLENE (MIRALAX) 17 GM PACK PO PRN (22:42)
[2020-08-13] MEDS ORDERED: DICYCLOMINE HCL 10 MG CAP PO PRN (22:42)
[2020-08-13] MEDS ORDERED: CEFEPIME CONSULT ACTIVE PRN (23:09)
[2020-08-13] MEDS: [UNRECOGNIZED DRUG - OTHER] SCH ×2 (23:22→23:44)
[2020-08-13] MEDS: SODIUM CHLORIDE 0.9% 1000ML 1,000 ML IV SCH (23:43)
[2020-08-14] MEDS: CEFEPIME 2,000 MG in SYRINGE 0 ML IV SCH ×2 (05:48→20:54)
[2020-08-14 07:30] LABS: Hematocrit (blood only) 36.7 % (37-47); Hemoglobin 12.2 g/dL (12.0-16.0); Mean Corpuscular Hemoglobin 32.2 pg (25-34); Mean Corpuscular Hgb Conc 33.2 g/dL (32-36); Mean Corpuscular Volume 96.8 fL (80-100); Mean Platelet Volume 8.6 fL (7.4-10.4); Platelet Count 576 K/uL (130-400); RDW Coefficient of Variation 16.2 % (11.5-14.5); RDW Standard Deviation 57.8 fL (36.4-46.3); Red Blood Count 3.79 M/uL (4.2-5.4); White Blood Count 17.25 K/uL (4.8-10.8)
[2020-08-14 07:58] LABS: Estimated Average Glucose 166 mg/dl; Hemoglobin A1C 7.4 % (4.5-5.6)
[2020-08-14 08:00] LABS: Est GFR (African American) 108.5; Est GFR (Non-African American) 93.6; Potassium 4.3 mmol/L (3.5-5.1)
[2020-08-14 08:01] LABS: BUN Creatinine Ratio 22.2 (10-20); Calcium 8.9 mg/dl (8.5-10.1); Creatinine Clr Calc Pharmacy 128.3 ml/min; Magnesium 1.9 mg/dl (1.8-2.4)
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
[2020-08-14 08:20] LABS: ALC (manual) 8.11 K/uL (1.2-3.4); ANC (manual) 8.56 K/uL (1.4-6.5); Band Neutrophils # (manual) 0.16 K/uL (0-0.6); Band Neutrophils % 0.9 %; Eosinophils # (manual) 0.29 K/uL (0-0.5); Eosinophils % (manual) 1.7 %; Howell-Jolly Bodies 1+; Lymphocytes # (manual) 8.11 K/uL (1.2-3.4); Monocytes # (manual) 0.29 K/uL (0.11-0.59); Monocytes % (manual) 1.7 %; Neutrophils % (manual) 48.7 %
[2020-08-14] MEDS: SODIUM CHLORIDE 0.9% 1000ML 1,000 ML IV SCH ×2 (08:37→15:49)
[2020-08-14] MEDS: [UNRECOGNIZED DRUG - OTHER] SCH ×2 (08:39→16:39)
[2020-08-14] MEDS: buPROPion XL 300 MG TABCR PO SCH (08:40)
[2020-08-14] MEDS: valACYclovir HCL 500 MG TABLET PO SCH ×2 (08:40→20:30)
[2020-08-14] MEDS: PANTOprazole 40 MG TAB PO SCH ×2 (08:40→20:30)
[2020-08-14] MEDS: MULTIVITAMIN TAB PO SCH (08:41)
[2020-08-14] MEDS: ATORVASTATIN 10 MG TAB PO SCH (08:41)
[2020-08-14] MEDS: INSULIN GLARGINE SOLOSTAR 100 UNITS/ML 3 ML PEN SC SCH ×2 (08:43→20:31)
[2020-08-14] MEDS: INSULIN ASPART 100 UNITS/ML 3 ML PEN SC SCH ×4 (08:43→20:32)
--- NOTE | 2020-08-14 08:51 | Electrocardiogram Report ---
Test Reason : Blood Pressure : / mmHG Vent. Rate : 097 BPM Atrial Rate : 097 BPM P-R Int : 214 ms QRS Dur : 068 ms QT Int : 320 ms P-R-T Axes : 053 026 031 degrees QTc Int : 406 ms Poor data quality, interpretation may be adversely affected Sinus rhythm with 1st degree A-V block Low voltage QRS Borderline ECG When compared with ECG of 16-MAR-2019 11:23, No significant change Confirmed by Chi Wild ([id number]) on 08/14/2020 8:51:12 AM Referred By: REFERRED SELF Confirmed By:Chi Wild
--- NOTE | 2020-08-14 09:33 | Electrocardiogram Report ---
Test Reason : Blood Pressure : / mmHG Vent. Rate : 085 BPM Atrial Rate : 085 BPM P-R Int : 194 ms QRS Dur : 096 ms QT Int : 386 ms P-R-T Axes : 048 030 056 degrees QTc Int : 459 ms Normal sinus rhythm Normal ECG When compared with ECG of 13-AUG-2020 17:24, No significant change was found Confirmed by Chi Wild ([id number]) on 08/14/2020 9:32:53 AM Referred By: REFERRED SELF Confirmed By:Chi Wild
--- NOTE | 2020-08-14 16:13 | Hospitalist Progress Note ---
Date of Service August 14, 2020 Assessment & Plan (1) Fall: (2) Acute hypotension: This 49-year-old female presents with feeling some difficulty concentrating for 2 weeks and lately falling frequently and found to have low blood pressure. Reports difficulty with spelling words when typing. 1. Hypotension: Possibly the cause of her lack of concentration, frequent falls, etiology unclear. The patient has chronic elevation of white count. The patient has history of splenectomy. ER empirically started on cefepime, which will be continued. Follow the cultures. Urinalysis negative. Chest x-ray and CT of the chest unremarkable. AM cortisol level - pending The patient is also on hydrochlorothiazide/lisinopril and spironolactone, which will be held. She has spironolactone for acne for the last 10 years. Will continue IV fluids and we also will follow the morning troponin and echocardiogram and monitor in the tele floor. Troponin negative Echocardiogram - the study was technically limited. Grossly normal valvular structure and function. LV is normal in size. LV wall motion is normal at rest. EF 65 to 70%. RV systolic function is normal. LA size is normal. RA size is normal. Recurrent falls, difficulty typing, difficulty with concentration -strokelike symptoms Given work-up so far negative, we will also obtain carotid artery ultrasound and brain MRI Depending on results, may also involve neurology for further evaluation Clinically patient is much improved Blood pressure is improved we will obtain orthostatic vital signs and will stop IV fluids now 2. Lactic acidosis, rule out sepsis: Could be from the hypotension. Getting fluids. Lactate now 0.9 3. Acute kidney Injury: Currently with a creatinine of 1.2, baseline creatinine 0.6. Received IVF, now resolved Avoid nephrotoxic agents. Holding lisinopril/hydrochlorothiazide and spironolactone. Continue to monitor BMP 4. Essential thrombocytopenia: On hydroxyurea. 5. Morbid obesity: Needs counseling. 6. RONI, mild, the patient is not using CPAP. 7. Diabetes: Hold glipizide, hold metformin. Placed on Lantus 5 units b.i.d. and insulin sliding scale. Diabetic diet. Will follow the blood sugars. 8. Hypertension: Hypotensive on admission. Hold lisinopril/hydrochlorothiazide and spironolactone. 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 10. History of anxiety, depression, attention deficit disorder, obsessive compulsive disorder. Continue her home medication of bupropion, Lamictal, buspirone, clonazepam. DVT prophylaxis: SCDs for now. Disposition: Closely monitor in the tele floor. Expect to discharge home and follow up with family doctor. Admission and Anticipated Discharge Date Admission Date: August 13, 2020 Subjective Patient seen in follow-up of recurrent falls, hypotension, JANE Currently patient is sitting up in a chair, eating lunch, in no acute distress Says she is feeling better, blood pressure is much improved now as well Denies any fevers or chills, chest pain or shortness of breath Reports that she was having difficulty spelling words when she was typing at work, then she fell at work and also fell again by the parking lot Review of Systems Review of Systems: All systems reviewed & are unremarkable except as noted in HPI & below Constitutional: no fever and no chills Respiratory: no cough and no dyspnea Cardiovascular: no chest pain and no palpitations Gastrointestinal: no abdominal pain, no nausea and no vomiting Genitourinary: no dysuria Physical Exam Physical Exam: GENERAL: morbidly obese female sitting up in chair, currently not in acute distress. HEENT: NC/AT, EOMI, PERRL, Oral mucosa moist NECK: No JVD, no neck masses. CARDIOVASCULAR: S1, S2 heard, regular rate and rhythm, no murmur, no gallop. RESPIRATORY: Normal AP diameter. No accessory muscle use. No wheezing, no crackles. ABDOMEN: Soft, obese, bowel sounds present, nontender, no distention. NEURO: Alert and oriented x3, speech fluent, no facial asymmetry, moves extremities spontaneously and without difficulty EXTREMITIES: No edema, no erythema. Results & Data Results & Data ([facility]) Vital Signs (Past 12 Hours) Vital Signs Temp Pulse Pulse Resp BP Pulse Ox 08/14/20 16:00 36.8 C 88 18 138/66 93 08/14/20 15:00 93 H 08/14/20 11:59 36.9 C 87 18 127/69 93 08/14/20 08:15 36.7 C 85 18 128/71 93 08/14/20 08:00 85 08/14/20 04:44 36.4 C L 86 18 136/75 95 Laboratory Results 08/14/20 08/14/20 08/14/20 Range/Units 11:22 07:18 07:10 WBC (4.8-10.8) K/uL RBC (4.2-5.4) M/uL Hgb (12.0-16.0) g/dL Hct (37-47) % MCV (80-100) fL MCH (25-34) pg MCHC (32-36) g/dL RDW Std Deviation (36.4-46.3) fL RDW Coeff of Aldo (11.5-14.5) % Plt Count (130-400) K/uL MPV (7.4-10.4) fL Neutrophils % (Manual) % Band Neutrophils % % Lymphocytes % (Manual) % Monocytes % (Manual) % Eosinophils % (Manual) % Basophils % (Manual) % Neutrophils # (Manual) (1.4-6.5) K/uL Band Neutrophils # (0-0.6) K/uL Total Absolute Neuts (1.4-6.5) K/uL Lymphocytes # (Manual) (1.2-3.4) K/uL Total Abs Lymphocytes (1.2-3.4) K/uL Monocytes # (Manual) (0.11-0.59) K/uL Eosinophils # (Manual) (0-0.5) K/uL Basophils # (Manual) (0-0.2) K/uL Hypersegmented Neuts RBC Morphology [place]eth Ward Bodies PT (9.0-12.0) Seconds INR (0.9-1.1) APTT (21.0-31.0) Seconds PTT Ratio D-Dimer (0-500) ug/L FEU Sodium (136-145) mmol/L Potassium (3.5-5.1) mmol/L Chloride (98-107) mmol/L Carbon Dioxide (21-32) mmol/L Anion Gap (3-11) BUN (7-18) mg/dl Creatinine (0.6-1.2) mg/dl Est Cr Clr Drug Dosing ml/min Est GFR ( Amer) Est GFR (Non-Af Amer) BUN/Creatinine Ratio (10-20) Glucose (70-99) mg/dl POC Glucose 109 H 110 H (70-99) mg/dl Estimat Average Glucose mg/dl Hemoglobin A1c (4.5-5.6) % Lactate 0.9 (0.4-2.0) mmol/L Calcium (8.5-10.1) mg/dl Magnesium (1.8-2.4) mg/dl Total Bilirubin (0.2-1) mg/dl AST (15-37) U/L ALT (12-78) U/L Alkaline Phosphatase (45-117) U/L Troponin I (0-0.045) ng/ml Total Protein (6.4-8.2) gm/dl Albumin (3.4-5.0) gm/dl Globulin (2.5-4.0) gm/dl Albumin/Globulin Ratio (0.9-2) HCG, Qual (Negative) Cortisol AM Sample (4.3-22.4) mcg/dl Urine Color Urine Appearance (Clear) Urine pH (4.5-7.5) Ur Specific [place] (1.000-1.030) Urine Protein (Negative) Urine Glucose (UA) (Negative) Urine Ketones (Negative) Urine Blood (Negative) Urine Nitrite (Negative) Urine Bilirubin (Negative) Urine Urobilinogen (Negative) Ur Leukocyte Esterase (Negative) COVID-19 Eval Order SARS-CoV-2 (PCR) (Negative) Influenza Type A (PCR) (Neg) Influenza Type B (PCR) (Neg) RSV (RT-PCR) (Neg) 08/14/20 08/14/20 08/14/20 Range/Units 07:10 07:10 07:10 WBC 17.25 H (4.8-10.8) K/uL RBC 3.79 L (4.2-5.4) M/uL Hgb 12.2 (12.0-16.0) g/dL Hct 36.7 L (37-47) % MCV 96.8 (80-100) fL MCH 32.2 (25-34) pg MCHC 33.2 (32-36) g/dL RDW Std Deviation 57.8 H (36.4-46.3) fL RDW Coeff of Aldo 16.2 H (11.5-14.5) % Plt Count 576 H (130-400) K/uL MPV 8.6 (7.4-10.4) fL Neutrophils % (Manual) 48.7 % Band Neutrophils % 0.9 % Lymphocytes % (Manual) 47.0 % Monocytes % (Manual) 1.7 % Eosinophils % (Manual) 1.7 % Basophils % (Manual) % Neutrophils # (Manual) 8.40 H (1.4-6.5) K/uL Band Neutrophils # 0.16 (0-0.6) K/uL Total Absolute Neuts 8.56 H (1.4-6.5) K/uL Lymphocytes # (Manual) 8.11 H (1.2-3.4) K/uL Total Abs Lymphocytes 8.11 H (1.2-3.4) K/uL Monocytes # (Manual) 0.29 (0.11-0.59) K/uL Eosinophils # (Manual) 0.29 (0-0.5) K/uL Basophils # (Manual) (0-0.2) K/uL Hypersegmented Neuts 1+ RBC Morphology [place] Ward Bodies 1+ PT (9.0-12.0) Seconds INR (0.9-1.1) APTT (21.0-31.0) Seconds PTT Ratio D-Dimer (0-500) ug/L FEU Sodium 136 (136-145) mmol/L Potassium 4.3 (3.5-5.1) mmol/L Chloride 104 (98-107) mmol/L Carbon Dioxide 26 (21-32) mmol/L Anion Gap 6.0 (3-11) BUN 17 (7-18) mg/dl Creatinine 0.75 D (0.6-1.2) mg/dl Est Cr Clr Drug Dosing 128.3 ml/min Est GFR ( Amer) 108.5 Est GFR (Non-Af Amer) 93.6 BUN/Creatinine Ratio 22.2 H (10-20) Glucose 113 H (70-99) mg/dl POC Glucose (70-99) mg/dl Estimat Average Glucose 166 mg/dl Hemoglobin A1c 7.4 H (4.5-5.6) % Lactate (0.4-2.0) mmol/L Calcium 8.9 (8.5-10.1) mg/dl Magnesium 1.9 (1.8-2.4) mg/dl Total Bilirubin (0.2-1) mg/dl AST (15-37) U/L ALT (12-78) U/L Alkaline Phosphatase (45-117) U/L Troponin I (0-0.045) ng/ml Total Protein (6.4-8.2) gm/dl Albumin (3.4-5.0) gm/dl Globulin (2.5-4.0) gm/dl Albumin/Globulin Ratio (0.9-2) HCG, Qual (Negative) Cortisol AM Sample (4.3-22.4) mcg/dl Urine Color Urine Appearance (Clear) Urine pH (4.5-7.5) Ur Specific [place] (1.000-1.030) Urine Protein (Negative) Urine Glucose (UA) (Negative) Urine Ketones (Negative) Urine Blood (Negative) Urine Nitrite (Negative) Urine Bilirubin (Negative) Urine Urobilinogen (Negative) Ur Leukocyte Esterase (Negative) COVID-19 Eval Order SARS-CoV-2 (PCR) (Negative) Influenza Type A (PCR) (Neg) Influenza Type B (PCR) (Neg) RSV (RT-PCR) (Neg) 08/14/20 08/13/20 08/13/20 Range/Units 07:10 19:26 19:26 WBC (4.8-10.8) K/uL RBC (4.2-5.4) M/uL Hgb (12.0-16.0) g/dL Hct (37-47) % MCV (80-100) fL MCH (25-34) pg MCHC (32-36) g/dL RDW Std Deviation (36.4-46.3) fL RDW Coeff of Aldo (11.5-14.5) % Plt Count (130-400) K/uL MPV (7.4-10.4) fL Neutrophils % (Manual) % Band Neutrophils % % Lymphocytes % (Manual) % Monocytes % (Manual) % Eosinophils % (Manual) % Basophils % (Manual) % Neutrophils # (Manual) (1.4-6.5) K/uL Band Neutrophils # (0-0.6) K/uL Total Absolute Neuts (1.4-6.5) K/uL Lymphocytes # (Manual) (1.2-3.4) K/uL Total Abs Lymphocytes (1.2-3.4) K/uL Monocytes # (Manual) (0.11-0.59) K/uL Eosinophils # (Manual) (0-0.5) K/uL Basophils # (Manual) (0-0.2) K/uL Hypersegmented Neuts RBC Morphology [place] Ward Bodies PT (9.0-12.0) Seconds INR (0.9-1.1) APTT (21.0-31.0) Seconds PTT Ratio D-Dimer (0-500) ug/L FEU Sodium (136-145) mmol/L Potassium (3.5-5.1) mmol/L Chloride (98-107) mmol/L Carbon Dioxide (21-32) mmol/L Anion Gap (3-11) BUN (7-18) mg/dl Creatinine (0.6-1.2) mg/dl Est Cr Clr Drug Dosing ml/min Est GFR ( Amer) Est GFR (Non-Af Amer) BUN/Creatinine Ratio (10-20) Glucose (70-99) mg/dl POC Glucose (70-99) mg/dl Estimat Average Glucose mg/dl Hemoglobin A1c (4.5-5.6) % Lactate 2.2 H* (0.4-2.0) mmol/L Calcium (8.5-10.1) mg/dl Magnesium (1.8-2.4) mg/dl Total Bilirubin (0.2-1) mg/dl AST (15-37) U/L ALT (12-78) U/L Alkaline Phosphatase (45-117) U/L Troponin I (0-0.045) ng/ml Total Protein (6.4-8.2) gm/dl Albumin (3.4-5.0) gm/dl Globulin (2.5-4.0) gm/dl Albumin/Globulin Ratio (0.9-2) HCG, Qual (Negative) Cortisol AM Sample 10.41 (4.3-22.4) mcg/dl Urine Color Yellow Urine Appearance Clear (Clear) Urine pH 5.5 (4.5-7.5) Ur Specific [place] 1.013 (1.000-1.030) Urine Protein Negative (Negative) Urine Glucose (UA) Negative (Negative) Urine Ketones Negative (Negative) Urine Blood Negative (Negative) Urine Nitrite Negative (Negative) Urine Bilirubin Negative (Negative) Urine Urobilinogen Negative (Negative) Ur Leukocyte Esterase Negative (Negative) COVID-19 Eval Order SARS-CoV-2 (PCR) (Negative) Influenza Type A (PCR) (Neg) Influenza Type B (PCR) (Neg) RSV (RT-PCR) (Neg) 08/13/20 08/13/20 08/13/20 Range/Units 17:42 17:41 17:41 WBC (4.8-10.8) K/uL RBC (4.2-5.4) M/uL Hgb (12.0-16.0) g/dL Hct (37-47) % MCV (80-100) fL MCH (25-34) pg MCHC (32-36) g/dL RDW Std Deviation (36.4-46.3) fL RDW Coeff of Aldo (11.5-14.5) % Plt Count (130-400) K/uL MPV (7.4-10.4) fL Neutrophils % (Manual) % Band Neutrophils % % Lymphocytes % (Manual) % Monocytes % (Manual) % Eosinophils % (Manual) % Basophils % (Manual) % Neutrophils # (Manual) (1.4-6.5) K/uL Band Neutrophils # (0-0.6) K/uL Total Absolute Neuts (1.4-6.5) K/uL Lymphocytes # (Manual) (1.2-3.4) K/uL Total Abs Lymphocytes (1.2-3.4) K/uL Monocytes # (Manual) (0.11-0.59) K/uL Eosinophils # (Manual) (0-0.5) K/uL Basophils # (Manual) (0-0.2) K/uL Hypersegmented Neuts RBC Morphology [place] Ward Bodies PT (9.0-12.0) Seconds INR (0.9-1.1) APTT (21.0-31.0) Seconds PTT Ratio D-Dimer (0-500) ug/L FEU Sodium (136-145) mmol/L Potassium (3.5-5.1) mmol/L Chloride (98-107) mmol/L Carbon Dioxide (21-32) mmol/L Anion Gap (3-11) BUN (7-18) mg/dl Creatinine (0.6-1.2) mg/dl Est Cr Clr Drug Dosing ml/min Est GFR ( Amer) Est GFR (Non-Af Amer) BUN/Creatinine Ratio (10-20) Glucose (70-99) mg/dl POC Glucose (70-99) mg/dl Estimat Average Glucose mg/dl Hemoglobin A1c (4.5-5.6) % Lactate 3.9 H* (0.4-2.0) mmol/L Calcium (8.5-10.1) mg/dl Magnesium (1.8-2.4) mg/dl Total Bilirubin (0.2-1) mg/dl AST (15-37) U/L ALT (12-78) U/L Alkaline Phosphatase (45-117) U/L Troponin I (0-0.045) ng/ml Total Protein (6.4-8.2) gm/dl Albumin (3.4-5.0) gm/dl Globulin (2.5-4.0) gm/dl Albumin/Globulin Ratio (0.9-2) HCG, Qual (Negative) Cortisol AM Sample (4.3-22.4) mcg/dl Urine Color Urine Appearance (Clear) Urine pH (4.5-7.5) Ur Specific [place] (1.000-1.030) Urine Protein (Negative) Urine Glucose (UA) (Negative) Urine Ketones (Negative) Urine Blood (Negative) Urine Nitrite (Negative) Urine Bilirubin (Negative) Urine Urobilinogen (Negative) Ur Leukocyte Esterase (Negative) COVID-19 Eval Order [facility]FluRsv at [facility] SARS-CoV-2 (PCR) NEGATIVE (Negative) Influenza Type A (PCR) Negative (Neg) Influenza Type B (PCR) Negative (Neg) RSV (RT-PCR) Negative (Neg) 08/13/20 08/13/20 08/13/20 Range/Units 17:15 17:15 17:15 WBC 19.03 H (4.8-10.8) K/uL RBC 3.96 L (4.2-5.4) M/uL Hgb 12.7 (12.0-16.0) g/dL Hct 38.4 (37-47) % MCV 97.0 (80-100) fL MCH 32.1 (25-34) pg MCHC 33.1 (32-36) g/dL RDW Std Deviation 57.2 H (36.4-46.3) fL RDW Coeff of Aldo 16.2 H (11.5-14.5) % Plt Count 594 H (130-400) K/uL MPV 9.0 (7.4-10.4) fL Neutrophils % (Manual) 52.2 % Band Neutrophils % % Lymphocytes % (Manual) 36.5 % Monocytes % (Manual) 5.2 % Eosinophils % (Manual) 5.2 % Basophils % (Manual) 0.9 % Neutrophils # (Manual) 9.93 H (1.4-6.5) K/uL Band Neutrophils # (0-0.6) K/uL Total Absolute Neuts 9.93 H (1.4-6.5) K/uL Lymphocytes # (Manual) 6.95 H (1.2-3.4) K/uL Total Abs Lymphocytes 6.95 H (1.2-3.4) K/uL Monocytes # (Manual) 0.99 H (0.11-0.59) K/uL Eosinophils # (Manual) 0.99 H (0-0.5) K/uL Basophils # (Manual) 0.17 (0-0.2) K/uL Hypersegmented Neuts RBC Morphology Unremarkable [place] Ward Bodies PT (9.0-12.0) Seconds INR (0.9-1.1) APTT (21.0-31.0) Seconds PTT Ratio D-Dimer (0-500) ug/L FEU Sodium 134 L (136-145) mmol/L Potassium 4.4 (3.5-5.1) mmol/L Chloride 102 (98-107) mmol/L Carbon Dioxide 23 (21-32) mmol/L Anion Gap 9.0 (3-11) BUN 27 H (7-18) mg/dl Creatinine 1.29 H (0.6-1.2) mg/dl Est Cr Clr Drug Dosing 73.5 ml/min Est GFR ( Amer) 56.3 Est GFR (Non-Af Amer) 48.6 BUN/Creatinine Ratio 21.1 H (10-20) Glucose 151 H (70-99) mg/dl POC Glucose (70-99) mg/dl Estimat Average Glucose mg/dl Hemoglobin A1c (4.5-5.6) % Lactate (0.4-2.0) mmol/L Calcium 9.1 (8.5-10.1) mg/dl Magnesium 2.1 (1.8-2.4) mg/dl Total Bilirubin 0.3 (0.2-1) mg/dl AST 28 (15-37) U/L ALT 38 (12-78) U/L Alkaline Phosphatase 90 (45-117) U/L Troponin I < 0.015 (0-0.045) ng/ml Total Protein 7.4 (6.4-8.2) gm/dl Albumin 3.3 L (3.4-5.0) gm/dl Globulin 4.1 H (2.5-4.0) gm/dl Albumin/Globulin Ratio 0.8 L (0.9-2) HCG, Qual Negative (Negative) Cortisol AM Sample (4.3-22.4) mcg/dl Urine Color Urine Appearance (Clear) Urine pH (4.5-7.5) Ur Specific [place] (1.000-1.030) Urine Protein (Negative) Urine Glucose (UA) (Negative) Urine Ketones (Negative) Urine Blood (Negative) Urine Nitrite (Negative) Urine Bilirubin (Negative) Urine Urobilinogen (Negative) Ur Leukocyte Esterase (Negative) COVID-19 Eval Order SARS-CoV-2 (PCR) (Negative) Influenza Type A (PCR) (Neg) Influenza Type B (PCR) (Neg) RSV (RT-PCR) (Neg) 08/13/20 Range/Units 17:15 WBC (4.8-10.8) K/uL RBC (4.2-5.4) M/uL Hgb (12.0-16.0) g/dL Hct (37-47) % MCV (80-100) fL MCH (25-34) pg MCHC (32-36) g/dL RDW Std Deviation (36.4-46.3) fL RDW Coeff of Aldo (11.5-14.5) % Plt Count (130-400) K/uL MPV (7.4-10.4) fL Neutrophils % (Manual) % Band Neutrophils % % Lymphocytes % (Manual) % Monocytes % (Manual) % Eosinophils % (Manual) % Basophils % (Manual) % Neutrophils # (Manual) (1.4-6.5) K/uL Band Neutrophils # (0-0.6) K/uL Total Absolute Neuts (1.4-6.5) K/uL Lymphocytes # (Manual) (1.2-3.4) K/uL Total Abs Lymphocytes (1.2-3.4) K/uL Monocytes # (Manual) (0.11-0.59) K/uL Eosinophils # (Manual) (0-0.5) K/uL Basophils # (Manual) (0-0.2) K/uL Hypersegmented Neuts RBC Morphology [place] Ward Bodies PT 9.9 (9.0-12.0) Seconds INR 1.0 (0.9-1.1) APTT 22.5 (21.0-31.0) Seconds PTT Ratio 0.9 D-Dimer 460 (0-500) ug/L FEU Sodium (136-145) mmol/L Potassium (3.5-5.1) mmol/L Chloride (98-107) mmol/L Carbon Dioxide (21-32) mmol/L Anion Gap (3-11) BUN (7-18) mg/dl Creatinine (0.6-1.2) mg/dl Est Cr Clr Drug Dosing ml/min Est GFR ( Amer) Est GFR (Non-Af Amer) BUN/Creatinine Ratio (10-20) Glucose (70-99) mg/dl POC Glucose (70-99) mg/dl Estimat Average Glucose mg/dl Hemoglobin A1c (4.5-5.6) % Lactate (0.4-2.0) mmol/L Calcium (8.5-10.1) mg/dl Magnesium (1.8-2.4) mg/dl Total Bilirubin (0.2-1) mg/dl AST (15-37) U/L ALT (12-78) U/L Alkaline Phosphatase (45-117) U/L Troponin I (0-0.045) ng/ml Total Protein (6.4-8.2) gm/dl Albumin (3.4-5.0) gm/dl Globulin (2.5-4.0) gm/dl Albumin/Globulin Ratio (0.9-2) HCG, Qual (Negative) Cortisol AM Sample (4.3-22.4) mcg/dl Urine Color Urine Appearance (Clear) Urine pH (4.5-7.5) Ur Specific [place] (1.000-1.030) Urine Protein (Negative) Urine Glucose (UA) (Negative) Urine Ketones (Negative) Urine Blood (Negative) Urine Nitrite (Negative) Urine Bilirubin (Negative) Urine Urobilinogen (Negative) Ur Leukocyte Esterase (Negative) COVID-19 Eval Order SARS-CoV-2 (PCR) (Negative) Influenza Type A (PCR) (Neg) Influenza Type B (PCR) (Neg) RSV (RT-PCR) (Neg) Medications Administered Current Inpatient Medications Acetaminophen (Acetaminophen 325 Mg Tab) 650 mg PO Q4H PRN PRN Reason: Pain or Fever Stop: 09/12/20 22:41 Albuterol (Albuterol Hfa 8 Gm Inhaler) 2 - 4 puffs INH QID PRN PRN Reason: Wheezing Stop: 09/12/20 22:41 Atorvastatin Calcium (Atorvastatin 10 Mg Tab) 10 mg PO [facility] Stop: 09/13/20 08:59 Last Admin: 08/14/20 08:41 Dose: 10 mg Documented by: Bupropion HCl (Bupropion Xl 300 Mg Tabcr) 300 mg PO [facility] Stop: 09/13/20 08:59 Last Admin: 08/14/20 08:40 Dose: 300 mg Documented by: Buspirone HCl (Buspirone 15 Mg Tab) 15 mg PO [facility] Stop: 09/13/20 20:59 Clonazepam (Clonazepam 1 Mg Tab) 2 mg PO [facility] Stop: 09/13/20 20:59 Dicyclomine HCl (Dicyclomine Hcl 10 Mg Cap) 10 mg PO QID PRN PRN Reason: Abdominal Pain Stop: 09/12/20 22:41 Sodium Chloride (Nss 1000ml) 1,000 mls @ 125 mls/hr IV .Q8H [facility] Stop: 09/12/20 22:41 Last Admin: 08/14/20 15:49 Dose: Not Given Documented by: Cefepime HCl 2,000 mg/ Syringe 20 mls @ 5 mls/min IV Q12H [facility]; Protocol Stop: 08/16/20 05:59 Last Admin: 08/14/20 05:48 Dose: 5 mls/min Documented by: Insulin Aspart (Insulin Aspart 100 Units/Ml 3 Ml Pen) 0 units SC ACHS [facility] Stop: 09/13/20 07:29 Last Admin: 08/14/20 12:19 Dose: 3 units Documented by: Insulin Glargine (Insulin Glargine Solostar 100 Units/Ml 3 Ml Pen) 5 units SC BID [facility] Stop: 09/13/20 08:59 Last Admin: 08/14/20 08:43 Dose: 5 units Documented by: Lamotrigine (Lamotrigine 100 Mg Tab) 200 mg PO HS [facility] Stop: 09/13/20 20:59 Miscellaneous (Cleocin Lotion~Order Awaiting Action) 1 ea N/A QS [facility] Stop: 09/12/20 23:14 Last Admin: 08/14/20 08:39 Dose: Not Given Documented by: Miscellaneous (Tretinoin~Order Awaiting Action) 1 ea N/A QS [facility] Stop: 09/12/20 23:14 Last Admin: 08/14/20 08:39 Dose: Not Given Documented by: Miscellaneous (Hydroxyurea~Order Awaiting Action) 1 ea N/A QS [facility] Stop: 09/12/20 23:14 Last Admin: 08/14/20 08:39 Dose: Not Given Documented by: Miscellaneous Information (Cefepime Consult Active) 1 ea N/A UD PRN PRN Reason: Consult Stop: 09/12/20 23:08 Multivitamins (Multivitamin Tab) 1 tab PO QAM [facility] Stop: 09/13/20 08:59 Last Admin: 08/14/20 08:41 Dose: 1 tab Documented by: Pantoprazole Sodium (Pantoprazole 40 Mg Tab) 40 mg PO BID [facility] Stop: 09/13/20 08:59 Last Admin: 08/14/20 08:40 Dose: 40 mg Documented by: Polyethylene Glycol (Polyethylene (Miralax) 17 Gm Pack) 17 gm PO DAILY PRN PRN Reason: Constipation Stop: 09/12/20 22:41 Valacyclovir HCl (Valacyclovir Hcl 500 Mg Tablet) 500 mg PO BID [facility] Stop: 09/13/20 08:59 Last Admin: 08/14/20 08:40 Dose: 500 mg Documented by:
--- NOTE | 2020-08-14 17:30 | Ultrasound Report ---
ULTRASOUND OF THE CAROTID ARTERIES CLINICAL HISTORY: recurrent falls LIGHTHEADEDNESS. POSSIBLE VASCULAR INSUFFICIENCY. COMPARISON STUDY: None. TECHNIQUE: Real-time, grayscale, and color Doppler sonography of the carotid arteries was performed. Imaging reviewed in the transverse and longitudinal planes. NASCET criteria was utilized for stenosis calcification. FINDINGS: There is mild atherosclerotic plaque present . The peak systolic velocity within the right internal carotid artery is 81 cm/sec. The systolic velocity ratio of right internal to common carotid artery is 0.8. The peak systolic velocity within the left internal carotid artery is 85 cm/sec. The systolic velocity ratio left internal to common carotid artery is 0.7. Antegrade flow is seen in the vertebral arteries. The external carotid arteries are patent. Blood pressure in the right arm measured 145 mm/Hg. Blood pressure in the left arm measured 166 mm/H g. IMPRESSION: 1. No evidence of hemodynamically significant carotid stenosis 2. Minor systolic blood pressure asymmetry with the left arm pressure measuring 21 mmHg higher than t he right. ACT 112: Negative or not required by law. Electronically signed by: Renan Fitzgerald M.D. 08/14/2020 5:28 PM
--- NOTE | 2020-08-14 18:45 | Magnetic Resonance Report ---
MRI OF THE BRAIN WITHOUT CONTRAST CLINICAL HISTORY: stroke like symptoms COMPARISON STUDY: Noncontrast head CT dated 08/13/2020 FINDINGS: Sagittal T1, axial diffusion, proton density and T2 weighted axial, coronal FLAIR, and axial T1-weigh james images were acquired. No intra or extra-axial mass lesions are visualized Axial diffusion-weighted images reveal no evidence of acute or subacute infarction. There is no evidence of ventricular dilatation. Proton density T2-weighted and FLAIR images reveal no significant intraparenchymal signal abnormaliti es. There are no abnormal flow voids. IMPRESSION: 1. No acute intracranial findings 2. No evidence of intracranial mass on this noncontrast study 2. No evidence of acute or subacute infarction ACT 112: Negative or not required by law. Electronically signed by: Renan Fitzgerald M.D. 08/14/2020 6:43 PM
[2020-08-14] MEDS: busPIRone 15 MG TAB PO SCH (20:30)
[2020-08-14] MEDS: clonazePAM 1 MG TAB PO SCH (20:30)
[2020-08-14] MEDS: lamoTRIgine 100 MG TAB PO SCH (20:30)
[2020-08-15] MEDS: [UNRECOGNIZED DRUG - OTHER] SCH ×4 (01:09→23:22)
[2020-08-15 05:45] LABS: Hematocrit (blood only) 37.8 % (37-47); Hemoglobin 12.4 g/dL (12.0-16.0); Mean Corpuscular Hgb Conc 32.8 g/dL (32-36); Mean Corpuscular Volume 97.4 fL (80-100); Mean Platelet Volume 8.7 fL (7.4-10.4); Platelet Count 549 K/uL (130-400); RDW Coefficient of Variation 16.3 % (11.5-14.5); RDW Standard Deviation 57.5 fL (36.4-46.3); Red Blood Count 3.88 M/uL (4.2-5.4); White Blood Count 17.25 K/uL (4.8-10.8)
[2020-08-15] MEDS: CEFEPIME 2,000 MG in SYRINGE 0 ML IV SCH ×2 (05:49→17:21)
[2020-08-15 06:29] LABS: Basophils # (auto) 0.06 K/uL (0-0.2); Basophils % (auto) 0.3 %; Eosinophils # (auto) 0.64 K/uL (0-0.5); Eosinophils % (auto) 3.7 %; Immature Granulocytes # (auto) 0.16 K/uL (0.00-0.02); Immature Granulocytes % (auto) 0.9 %; Lymphocytes # (auto) 6.73 K/uL (1.2-3.4); Monocytes # (auto) 1.84 K/uL (0.11-0.59); Monocytes % (auto) 10.7 %; Neutrophils # (auto) 7.82 K/uL (1.4-6.5); Neutrophils % (auto) 45.4 %; RBC Morphology Unremarkable
[2020-08-15 06:30] LABS: BUN Creatinine Ratio 13.9 (10-20); Calcium 8.6 mg/dl (8.5-10.1); Creatinine Clr Calc Pharmacy 122.9 ml/min; Est GFR (African American) 108.5; Est GFR (Non-African American) 93.6; Magnesium 1.7 mg/dl (1.8-2.4); Phosphorus 3.5 mg/dl (2.5-4.9); Potassium 4.1 mmol/L (3.5-5.1)
[2020-08-15] MEDS: INSULIN ASPART 100 UNITS/ML 3 ML PEN SC SCH ×4 (08:04→22:52)
[2020-08-15] MEDS: PANTOprazole 40 MG TAB PO SCH ×2 (08:05→20:46)
[2020-08-15] MEDS: INSULIN GLARGINE SOLOSTAR 100 UNITS/ML 3 ML PEN SC SCH ×2 (08:05→20:46)
[2020-08-15] MEDS: valACYclovir HCL 500 MG TABLET PO SCH ×2 (08:06→20:46)
[2020-08-15] MEDS: MULTIVITAMIN TAB PO SCH (08:06)
[2020-08-15] MEDS: buPROPion XL 300 MG TABCR PO SCH (08:06)
[2020-08-15] MEDS: ATORVASTATIN 10 MG TAB PO SCH (08:06)
--- NOTE | 2020-08-15 09:06 | Electrocardiogram Report ---
Test Reason : Blood Pressure : / mmHG Vent. Rate : 085 BPM Atrial Rate : 085 BPM P-R Int : 194 ms QRS Dur : 092 ms QT Int : 364 ms P-R-T Axes : 036 028 051 degrees QTc Int : 433 ms Normal sinus rhythm Normal ECG When compared with ECG of 14-AUG-2020 07:40, No significant change was found Confirmed by Chi Wild ([id number]) on 08/15/2020 9:05:41 AM Referred By: REFERRED SELF Confirmed By:Chi Wild
[2020-08-15] MEDS ORDERED: MAGNESIUM SULFATE / D5W 1 GM/100 ML BAG IV ONE (10:30)
[2020-08-15] MEDS ORDERED: ASPIRIN 81 MG ECTAB PO SCH (14:15)
--- NOTE | 2020-08-15 14:53 | Consultation Report ---
DATE OF CONSULTATION: 08/15/2020 NEUROLOGY CONSULTATION NOTE CHIEF COMPLAINT: Hypotension and falls. HISTORY OF PRESENT ILLNESS: A 49-year-old woman with history of diabetes, polycystic ovary disease, hyperlipidemia, obesity, and obstructive sleep apnea, on CPAP, admitted on 08/13/2020 for falls and hypotension. The patient noted that she was having 2 weeks' worth of difficulty concentrating and had been falling. On 08/13, she fell a few times, which prompted her to come to the Emergency Department. In the Emergency Department, her blood pressure was 90s/50s. Her blood pressure improved with IV fluids. She also had a leukocytosis, although this was thought to be chronic based on previous labs. 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 Lactic acid was mildly elevated at 3.9 and improved with fluids. Urinalysis was negative. SARS-COVID testing was negative. Influenza was negative. RSV was negative. She had received her COVID vaccination. In the Emergency Department, she underwent a CTA of the chest as well as an x-ray, which were unremarkable. CT of the head was unremarkable. EKG was unremarkable. She did not complain of any chest pain, cough, fevers or chills. She did complain of some constipation. Neurology was consulted for possibility of a TIA. ALLERGIES: PENICILLINS. PAST MEDICAL HISTORY: Diabetes, hyperlipidemia, allergic rhinitis, obstructive sleep apnea, obesity, acne, iron-deficiency anemia, herpes simplex virus infection, depression, anxiety, ADHD, obsessive-compulsive disorder, history of trauma. PAST SURGICAL HISTORY: Colonoscopy, EGD, splenectomy in 2003, hysterectomy or removal of cervix cone in 2006. HOME MEDICATIONS: Lipitor, Wellbutrin, buspirone, clindamycin topical, glipizide, hydrochlorothiazide, hydroxyurea, Lamictal 200 mg at bedtime, lisinopril, meloxicam, metformin 1000 mg twice daily, multivitamin, omeprazole, spironolactone, valacyclovir. FAMILY HISTORY: Her mother had allergies and diabetes as well as hypertension and hyperlipidemia. Her father had hypertension, hyperlipidemia and bladder cancer. SOCIAL HISTORY: She is single, nonsmoker, drinks alcohol occasionally. She denies any illicit drug use. REVIEW OF SYSTEMS: A 14-point review of systems was performed and negative except as noted above in the HPI. PHYSICAL EXAMINATION: VITAL SIGNS: Blood pressure 109/62, pulse is 85, respiratory rate 18, temperature is 36.6 degrees Celsius, oxygen saturation is 94% on room air. GENERAL: The patient appears normally developed, she is morbidly obese, in no distress. HEENT: Head is normocephalic and atraumatic. Normal eyelids, normal conjunctivae. NECK: Supple. LUNGS: Normal respiratory effort. CARDIOVASCULAR: Normal cardiac pulses. ABDOMEN: Nondistended, nontender. SKIN: Shows no rash. PSYCHIATRIC: Normal mood and normal affect. NEUROLOGIC: She is awake, alert and oriented to person, place and time. Her memory is normal. Attention is normal. Knowledge is appropriate. Language shows intact comprehension. No aphasia. Speech is normal, no dysarthria. No visual defect on confrontation. Pupils are symmetric. Extraocular muscles are intact. No nystagmus. Facial sensation intact. No facial asymmetry. Intact hearing. Palate is symmetric. Good shoulder shrug. Tongue is midline. Gait examination is deferred. Coordination: No tremor, no ataxia with [id number] testing. Sensation is intact to light touch. Muscle tone is normal. Muscle strength reveals no focal weakness. Reflexes show no ankle clonus, negative Arnaldo sign bilaterally. DIAGNOSTIC TESTING AND LABORATORY VALUES: WBC 17.25, hemoglobin 12.4, platelet count 549. INR is 1.0. Sodium is 137, potassium 4.1, chloride is 105, carbon dioxide is 29, BUN is 10, creatinine 0.75, glucose is 123, calcium is 8.6, phosphorus is 3.5. Magnesium is slightly low at 1.7. Urinalysis was normal. COVID-19 was negative. Influenza was negative. RSV was negative. MRI of the brain showed no evidence of acute intracranial abnormality. No evidence of acute stroke. No evidence of intracranial mass. No evidence of acute or subacute infarction. Carotid ultrasound showed no evidence of hemodynamically significant carotid stenosis. ASSESSMENT AND PLAN: A 49-year-old woman with a history of multiple medical comorbidities including morbid obesity as well as polypharmacy, admitted with recurrent falls and difficulty concentrating. Upon admission, she was noted to be hypotensive, which was thought to be due to dehydration. Blood pressure is improved with IV fluids. Clinical history is devoid of any features to suggest that she has had a transient ischemic attack or ischemic stroke. MRI of the brain was reviewed and I am also happy to report that there is no evidence of acute stroke. Carotid ultrasound was also performed showing no hemodynamically significant stenosis. In regards to her recurrent falls, this is likely multifactorial due to obesity, deconditioning as well as a possible component of peripheral neuropathy. It is not uncommon for type 2 diabetics to have an ataxic gait with recurrent falls due to reduced proprioception. Would recommend physical therapy and occupational therapy for rehabilitation needs. Hemoglobin A1c upon this admission is 7.4. Diabetes appears to be well controlled. Otherwise, can defer on any additional neuropathy evaluation while inpatient. The patient can follow up with her primary care physician after discharge. Please contact me with any additional questions or concerns.
--- NOTE | 2020-08-15 18:17 | Hospitalist Progress Note ---
Date of Service August 15, 2020 Assessment & Plan (1) Fall: (2) Acute hypotension: Patient is a 49 yr female presents with feeling some difficulty concentrating for 2 weeks and lately falling frequently and found to have low blood pressure. Reports difficulty with spelling words when typing. Hypotension Frequent falls Stroke like symptoms Unclear etiology -MRI Brain:No acute intracranial findings. No evidence of intracranial mass on this noncontrast study. No evidence of acute or subacute infarction -Carotid USD;No evidence of hemodynamically significant carotid stenosis. Minor systolic blood pressure asymmetry with the left arm pressure measuring 21 mmHg higher than the right. -ECHO:Technically limited. Grossly normal valvular structure and function. LV is normal in size. LV wall motion is normal at rest. EF 65 to 70%. RV systolic function is normal. LA size is normal. RA size is normal. -Negative orthostatics -AM Cortisol within normal limits -CVA ruled out -Appreciate Neurology Input -PT/OT Fall precautions BP Variable Received IV fluids -Diuretics, lisinopril held for now Chronic leukocytosis Essential Thrombocythemia History of splenectomy Blood Cx: Negative to date UA: Normal Empirically on cefepime Plan to discontinue antibiotics if cultures remain negative Continue hydroxyurea, Valacyclovir Hypomagnesemia Replace electrolytes as needed Lactic acidosis Likely due to Metformin Improved with IV fluids Acute kidney Injury: Cr back to baseline Received IV fluids Monitor renal function Lisinopril held Morbid obesity BMI:44 RONI Not using CPAP DM II HbA1C:7.4 Hold PO meds Continue insulin therapy Monitor BGs Anxiety, depression, Attention deficit disorder OCD Continue bupropion, Lamictal, buspirone, clonazepam. Needs follow up with Psychiatry upon discharge DVT Px: SCDs Disposition: Expect to discharge home when stable Admission and Anticipated Discharge Date Admission Date: August 13, 2020 Subjective Patient is seen and examined at bedside States feeling much better today Offers no complaints today Denies chest pain, shortness of breath, dizziness, nausea, abdominal pain Discussed with neurology today Review of Systems Review of Systems: All systems reviewed & are unremarkable except as noted in HPI & below Physical Exam Physical Exam: Physical Exam: Vitals signs as noted above General Appearance:Morbid Obese, no apparent distress Head: normocephalic, Atraumatic Eyes: normal inspection, EOMI Neck: supple, Trachea midline Respiratory/Chest: Decreased breath sounds, CTA Cardiovascular: S1, S2, No murmur Abdomen/GI:Soft, Non tender, Bowel sounds present Extremities/Musculoskeletal:normal inspection, no edema Neurologic/Psych:AAOX3, grossly no focal neurological deficits Skin: normal color, warm Results & Data Results & Data ([facility]) Vital Signs (Past 12 Hours) Vital Signs Temp Pulse Pulse Resp BP Pulse Ox 08/15/20 15:28 36.6 C 58 L 18 104/86 94 08/15/20 15:16 84 08/15/20 11:43 36.6 C 85 18 109/62 94 08/15/20 08:00 82 08/15/20 07:29 36.6 C 85 18 116/64 92 Laboratory Results Short CBC 08/15/20 Range/Units 05:22 WBC 17.25 H (4.8-10.8) K/uL Hgb 12.4 (12.0-16.0) g/dL Hct 37.8 (37-47) % Plt Count 549 H (130-400) K/uL BMP 08/15/20 05:22 Sodium 137 Potassium 4.1 Chloride 105 Carbon Dioxide 29 BUN 10 D Creatinine 0.75 Glucose 123 H Calcium 8.6
[2020-08-15] MEDS: lamoTRIgine 100 MG TAB PO SCH (20:46)
[2020-08-15] MEDS: busPIRone 15 MG TAB PO SCH (20:46)
[2020-08-15] MEDS: clonazePAM 1 MG TAB PO SCH (20:52)
[2020-08-16] MEDS: CEFEPIME 2,000 MG in SYRINGE 0 ML IV SCH (05:54)
[2020-08-16 07:14] LABS: Hematocrit (blood only) 39.3 % (37-47); Hemoglobin 12.8 g/dL (12.0-16.0); Mean Corpuscular Hemoglobin 31.9 pg (25-34); Mean Corpuscular Hgb Conc 32.6 g/dL (32-36); Mean Platelet Volume 8.8 fL (7.4-10.4); Platelet Count 564 K/uL (130-400); RDW Coefficient of Variation 16.2 % (11.5-14.5); RDW Standard Deviation 58.4 fL (36.4-46.3); Red Blood Count 4.01 M/uL (4.2-5.4); White Blood Count 15.33 K/uL (4.8-10.8)
[2020-08-16 07:47] LABS: BUN Creatinine Ratio 12.9 (10-20); Calcium 8.8 mg/dl (8.5-10.1); Creatinine Clr Calc Pharmacy 118.5 ml/min; Est GFR (African American) 112.1; Est GFR (Non-African American) 96.7; Magnesium 1.8 mg/dl (1.8-2.4); Potassium 4.1 mmol/L (3.5-5.1)
[2020-08-16 07:52] LABS: Basophils # (auto) 0.05 K/uL (0-0.2); Basophils % (auto) 0.3 %; Eosinophils # (auto) 0.49 K/uL (0-0.5); Eosinophils % (auto) 3.2 %; Immature Granulocytes # (auto) 0.13 K/uL (0.00-0.02); Immature Granulocytes % (auto) 0.8 %; Lymphocytes # (auto) 5.91 K/uL (1.2-3.4); Lymphocytes % (auto) 38.6 %; Monocytes # (auto) 1.45 K/uL (0.11-0.59); Monocytes % (auto) 9.5 %; Neutrophils % (auto) 47.6 %
[2020-08-16] MEDS: [UNRECOGNIZED DRUG - OTHER] SCH (07:58)
[2020-08-16] MEDS: PANTOprazole 40 MG TAB PO SCH (07:59)
[2020-08-16] MEDS: buPROPion XL 300 MG TABCR PO SCH (07:59)
[2020-08-16] MEDS: MULTIVITAMIN TAB PO SCH (07:59)
[2020-08-16] MEDS: valACYclovir HCL 500 MG TABLET PO SCH (07:59)
[2020-08-16] MEDS: INSULIN ASPART 100 UNITS/ML 3 ML PEN SC SCH ×2 (08:00→12:29)
[2020-08-16] MEDS: INSULIN GLARGINE SOLOSTAR 100 UNITS/ML 3 ML PEN SC SCH (08:00)
[2020-08-16] MEDS ORDERED: ATORVASTATIN 40 MG TAB PO SCH (09:00)
--- NOTE | 2020-08-16 13:25 | Hospitalist Progress Note ---
Date of Service August 16, 2020 Assessment & Plan (1) Fall: (2) Acute hypotension: Patient is a 49 yr female presents with feeling some difficulty concentrating for 2 weeks and lately falling frequently and found to have low blood pressure. Reports difficulty with spelling words when typing. Hypotension Frequent falls Stroke like symptoms Unclear etiology -MRI Brain:No acute intracranial findings. No evidence of intracranial mass on this noncontrast study. No evidence of acute or subacute infarction -Carotid USD;No evidence of hemodynamically significant carotid stenosis. Minor systolic blood pressure asymmetry with the left arm pressure measuring 21 mmHg higher than the right. -ECHO:Technically limited. Grossly normal valvular structure and function. LV is normal in size. LV wall motion is normal at rest. EF 65 to 70%. RV systolic function is normal. LA size is normal. RA size is normal. -Negative orthostatics -AM Cortisol within normal limits -CVA ruled out -Appreciate Neurology Input -PT/OT Fall precautions BP Variable Received IV fluids -Will discontinue HCTZ -Decrease lisinopril to 10mg daily Chronic leukocytosis Essential Thrombocythemia History of splenectomy Blood Cx: Negative to date UA: Normal Empirically received cefepime Continue hydroxyurea, Valacyclovir Hypomagnesemia Replace electrolytes as needed Lactic acidosis Likely due to Metformin Improved with IV fluids Acute kidney Injury: Cr back to baseline Received IV fluids Monitor renal function Morbid obesity BMI:44 RONI Not using CPAP DM II HbA1C:7.4 Hold PO meds Continue insulin therapy Monitor BGs Anxiety, depression, Attention deficit disorder OCD Continue bupropion, Lamictal, buspirone, clonazepam. Needs follow up with Psychiatry upon discharge Disposition: Plan to discharge home today Admission and Anticipated Discharge Date Admission Date: August 13, 2020 Subjective Patient is seen and examined at bedside Doing well today Offers no complaints Eager to get discharged Denies chest pain, shortness of breath, dizziness, nausea, abdominal pain Review of Systems Review of Systems: All systems reviewed & are unremarkable except as noted in HPI & below Physical Exam Physical Exam: Physical Exam: Vitals signs as noted above General Appearance:Morbid Obese, no apparent distress Head: normocephalic, Atraumatic Eyes: normal inspection, EOMI Neck: supple, Trachea midline Respiratory/Chest: Decreased breath sounds, CTA Cardiovascular: S1, S2, No murmur Abdomen/GI:Soft, Non tender, Bowel sounds present Extremities/Musculoskeletal:normal inspection, no edema Neurologic/Psych:AAOX3, grossly no focal neurological deficits Skin: normal color, warm Results & Data Results & Data ([facility]) Vital Signs (Past 12 Hours) Vital Signs Temp Pulse Pulse Resp BP Pulse Ox 08/16/20 11:17 36.8 C 83 18 121/85 93 08/16/20 08:00 81 08/16/20 07:20 36.8 C 85 18 126/83 94 08/16/20 03:27 36.3 C L 88 20 136/84 95 Laboratory Results Short CBC 08/16/20 Range/Units 06:54 WBC 15.33 H (4.8-10.8) K/uL Hgb 12.8 (12.0-16.0) g/dL Hct 39.3 (37-47) % Plt Count 564 H (130-400) K/uL BMP 08/16/20 06:54 Sodium 138 Potassium 4.1 Chloride 105 Carbon Dioxide 29 BUN 9 Creatinine 0.73 Glucose 127 H Calcium 8.8
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
[2020-08-17] MEDS ORDERED: ATORVASTATIN 10 MG TAB PO SCH (09:00)
== END 2020-08-16 14:19 | disposition home or self-care (01) | DRG 315 ==
LOC: ED 16:40 → SUATTDRO 22:07 → 2S 22:07

== ENCOUNTER 2024-11-27 17:28 | Inpatient (IN) ==
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
[2024-11-27] MEDS: SODIUM CHLORIDE 0.9% 1,000 ML IV ONE (18:03)
[2024-11-27 18:19] LABS: Hematocrit (blood only) 44.1 % (37.0-47.0); Hemoglobin 14.0 g/dl (12.0-16.0); Mean Corpuscular Hemoglobin 28.3 pg (25.0-34.0); Mean Corpuscular Volume 89.3 fL (80.0-100.0); Platelet Count 634 K/uL (130-400); RDW Standard Deviation 49.0 fL (36.4-46.3); Red Blood Count 4.94 M/uL (4.20-5.40); White Blood Count 21.54 K/ul (4.8-10.8)
[2024-11-27 18:37] LABS: Alanine Aminotransferase 22.0 U/L (7-52); Albumin Globulin Ratio 1.1 (0.9-2); Alkaline Phosphatase 116.0 U/L (34-104); Anion Gap 9.0 (3-11); Bilirubin,Total 0.5 mg/dl (0.2-1.0); Blood Urea Nitrogen 14.0 mg/dl (6-23); Calcium 9.6 mg/dl (8.6-10.3); Carbon Dioxide 28.0 mmol/L (21-32); Chloride 102.0 mmol/L (98-107); Creatinine Clr Calc Pharmacy 105.1 ml/min; Globulin 3.7 gm/dl (2.5-4.0); Glucose 127.0 mg/dl (70-99(Fasting)); Lipase 32.0 U/L (11-82); Potassium 4.0 mmol/L (3.5-5.1); Sodium 139.0 mmol/L (136-145); Total Protein 7.7 gm/dl (6.0-8.3)
[2024-11-27 18:44] LABS: Immature Granulocytes # (auto) 0.09 K/uL (0.01-0.20); Immature Granulocytes % (auto) 0.4 %
[2024-11-27 19:03] LABS: Appearance Urine Cloudy (Clear); Bacteria Urine Automated 1+ (None Seen); Cast Urine Automated 0-2 /lpf (0-2); Glucose Urine UA Negative (Negative); RBC Urine Automated >20 /hpf (0-2)
--- NOTE | 2024-11-27 19:24 | CT Scan Report ---
HISTORY: Right flank pain. TECHNIQUE: Helical CT imaging of the abdomen and pelvis was performed . Images are presented in axial, sagittal, and coronal reformats. COMPARISON: None. FINDINGS: Lung Bases/Inferior Mediastinum: Elevated left hemidiaphragm with chronic deformity of the left chest wall. Liver: Hepatic steatosis is mild. Liver is otherwise unremarkable. 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 Adrenals: Unremarkable Pancreas: Unremarkable Kidneys: Moderate right hydronephrosis. 0.4 cm obstructing stone in the proximal right ureter on series 2 image 48. Kidneys are otherwise unremarkable. Stomach/Bowel: Distal esophagus, stomach, and duodenum appear unremarkable. The small and large bowel loops are normal in caliber. Lymph nodes: Unremarkable Vasculature: No abdominal aortic aneurysm. Mild atherosclerotic vascular disease. Pelvis: Urinary bladder, uterus, and ovaries are unremarkable. No free pelvic fluid. Soft Tissues: Multiple fat-containing midline supraumbilical hernias. Soft tissues of the body wall are otherwise unremarkable. Bones: mild degenerative changes of the hips and pelvis. IMPRESSION: 1. Right obstructive uropathy. Moderate right hydronephrosis with a 0.4 cm stone obstructing the proximal right ureter on series 2 image 48. 2. Numerous chronic and/or incidental findings as detailed above. ACT 112: Positive. There are findings on this exam that require communication between the performing entity and the patient following Patient Test Result Information Act ([place] ACT 112) guidelines. Electronically signed by Maxwell Solis 11-27-2024 7:22 PM
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
[2024-11-27] MEDS: CEFEPIME 1000MG 1,000 MG/10 ML SYR IV ONE (20:40)
[2024-11-27] MEDS: TAMSULOSIN HCL 0.4 MG CAP PO ONE (20:40)
[2024-11-27] MEDS: SODIUM CHLORIDE 0.9% 1,000 ML IV SCH (20:47)
[2024-11-27] MEDS ORDERED: KETOROLAC TROMETHAMINE 15 MG/ML VIAL IV PRN (21:17)
[2024-11-27] MEDS ORDERED: MELATONIN 3 MG TAB PO PRN (21:17)
[2024-11-27] MEDS ORDERED: MoRPHine SULFATE 4 MG/ML 1 ML CARP\\VIAL IV PRN (21:17)
[2024-11-27] MEDS ORDERED: CARBOHYDRATES FOR HYPOGLYCEMIA PO PRN (21:17)
[2024-11-27] MEDS ORDERED: DEXTROSE 50% 50 ML SYRINGE IV PRN (21:17)
[2024-11-27] MEDS ORDERED: NALOXONE HCL 0.4 MG/1 ML VIAL/CARP IV PRN (21:17)
[2024-11-27] MEDS ORDERED: GLUCOSE 10 TAB/TUBE PO PRN (21:17)
[2024-11-27] MEDS ORDERED: MoRPHine SULFATE 2 MG/ML CARP IV PRN (21:17)
[2024-11-27] MEDS ORDERED: GLUCAGON FOR INJ 1 MG VIAL SQ PRN (21:17)
[2024-11-27] MEDS ORDERED: GLUCOSE 40% GEL 15 GM TUBE PO PRN (21:17)
[2024-11-27] MEDS: clonazePAM 1 MG TAB PO SCH (22:37)
[2024-11-27] MEDS: LACTATED RINGER'S 1,000 ML IV SCH (23:52)
[2024-11-28] MEDS: INSULIN ASPART PER UNIT CHARGE SC SCH ×2 (01:05→20:33)
[2024-11-28] MEDS: ACETAMINOPHEN 1,000 MG/100 ML VIAL IV PRN (03:01)
[2024-11-28] MEDS: CEFEPIME 1000MG 1,000 MG/10 ML SYR IV SCH (04:14)
[2024-11-28 04:46] LABS: Hematocrit (blood only) 38.4 % (37.0-47.0); Hemoglobin 12.0 g/dl (12.0-16.0); Mean Corpuscular Hemoglobin 28.2 pg (25.0-34.0); Mean Corpuscular Volume 90.4 fL (80.0-100.0); Platelet Count 538 K/uL (130-400); RDW Standard Deviation 49.8 fL (36.4-46.3); Red Blood Count 4.25 M/uL (4.20-5.40); White Blood Count 18.58 K/ul (4.8-10.8)
[2024-11-28 05:00] LABS: Anion Gap 7.0 (3-11); Blood Urea Nitrogen 11.0 mg/dl (6-23); Calcium 8.5 mg/dl (8.6-10.3); Carbon Dioxide 27.0 mmol/L (21-32); Chloride 106.0 mmol/L (98-107); Creatinine Clr Calc Pharmacy 127.9 ml/min; Glucose 114.0 mg/dl (70-99(Fasting)); Potassium 3.6 mmol/L (3.5-5.1); Sodium 140.0 mmol/L (136-145)
[2024-11-28 05:31] LABS: Immature Granulocytes # (auto) 0.05 K/uL (0.01-0.20); Immature Granulocytes % (auto) 0.3 %; Polychromasia 1+
[2024-11-28] MEDS: ONDANSETRON INJ 2 MG/ML 2 ML VIAL IV PRN (06:40)
--- NOTE | 2024-11-28 07:49 | Hospitalist Progress Note ---
Date of Service November 28, 2024 Assessment & Plan (1) Nephrolithiasis: (2) Acquired hydronephrosis with ureteropelvic junction (UPJ) obstruction: (3) Complicated urinary tract infection: (4) Hydronephrosis with obstructing calculus: (5) Asplenia: (6) Encounter for pre-operative examination: (7) Malignant hyperthermia: (8) Type 2 diabetes mellitus with hyperglycemia: (9) Obesity: Plan in summary this is a 54-year-old female admitted for obstructive nephrolithiasis with a suspected superimposed complicated urinary tract infection Hydronephrosis with obstructing calculus // Complicated urinary tract infection Patient presented with typical renal colic without systemic signs of infection; initial leukocytosis has improved; found on imaging to have a 4 mm obstructive nephrolith in the right system Discontinue cefepime Start levofloxacin 750 mg IV daily for total 7-day course Continue Flomax, acetaminophen, Toradol, as needed morphine sulfate Strain all urine Urology consulted regarding possible procedural intervention Type II diabetes mellitus with hyperglycemia Updated A1c is currently pending; glycemic target of preprandial less than 140 and random checks less than 180; withhold home medications at this time - Insulin needs pending A1c DVT PPx: SCD Admission and Anticipated Discharge Date Admission Date: November 27, 2024 Subjective Ms. Blanchard is a 54-year-old female whose active medical conditions include hyperlipidemia, hypertension, iron deficiency anemia, type 2 diabetes mellitus, major depressive disorder in sustained remission, irritable bowel syndromediarrhea predominant among other chronic medical conditions who presented to the [facility] on 11/27 due to progressive right flank pain. No acute overnight events; patient remains n.p.o. this morning for anticipated surgical intervention in the setting of an obstructed right ureter consequential of nephrolith. Pain is currently well-controlled per the patient's report with current medical interventions Review of Systems Review of Systems: remaining review of constitutional, pulmonary, cardiovascular, gastrointestinal, genitourinary, musculoskeletal, neurologic, and integumentary systems was unremarkable except for pertinent positive and negative findings noted in the HPI above. Physical Exam Physical Exam: General: Adult female in no acute distress Vital Signs: reviewed HEENT: pupils equally round reactive to light; extraocular motion intact; tacky mucous membranes Neck: Pulmonary: symmetric chest wall excursion; lungs clear to auscultation bilaterally Cardiovascular: regular rate and rhythm without murmurs, rubs, or gallops; S1 and S2 normal; bilateral radial and posterior tibial pulse 2+; trace bilateral lower extremity edema distal to the mid leg Genitourinary: no notable CVA tenderness Neurologic: CN II-XII grossly intact; no discernible focal weakness nor paresthesias Results & Data Results & Data Vital Signs (Past 12 Hours) Vital Signs Temp Pulse Pulse Resp BP Pulse Ox O2 Del Method 11/28/24 05:00 36.7 C 79 18 135/80 92 Room Air 11/28/24 00:19 87 11/27/24 23:52 36.6 C 82 18 138/81 94 Room Air 11/27/24 21:53 36.8 C 91 H 18 161/69 H 93 Room Air 11/27/24 20:00 87 24 138/86 90 Room Air PG Care Time/CCT Total # of Minutes Spent Total Time Spent with Patient: Total time spent is greater than 50% in coordination of care (as documented) at patient's floor/unit and/or counseling patient: Coding Level of Care Code 42441 SUB INP/OBS CARE 2/35MIN Diagnoses Nephrolithiasis N20.0 Acquired hydronephrosis with ureteropelvic junction (UPJ) obstruction N13.0 Complicated urinary tract infection N39.0 Hydronephrosis with obstructing calculus N13.2 Asplenia Q89.01 Encounter for pre-operative examination Z01.818 Malignant hyperthermia, subsequent encounter T88.3XXD Encounter type: subsequent encounter Type 2 diabetes mellitus with hyperglycemia, without long-term current use of insulin E11.65 Diabetes mellitus alf insulin use: without regional intermodal truck driver use Class 3 severe obesity due to excess calories with serious comorbidity and body mass index (BMI) of 40.0 to 44.9 in adult E66.813; Z68.41 Obesity type: due to excess calories Obesity classification: adult class 3 (BMI >= 40) Body mass index: BMI 40.0-44.9 Serious obesity comorbidity presence: with serious comorbidity (7) Malignant hyperthermia Encounter type: subsequent encounter Qualified Code(s): T88.3XXD - Malignant hyperthermia due to anesthesia, subsequent encounter (8) Type 2 diabetes mellitus with hyperglycemia Diabetes mellitus alf insulin use: without alf use Qualified Code(s): E11.65 - Type 2 diabetes mellitus with hyperglycemia (9) Obesity Obesity type: due to excess calories Obesity classification: adult class 3 (BMI >= 40) Body mass index: BMI 40.0-44.9 Serious obesity comorbidity presence: with serious comorbidity Qualified Code(s): E66.813 - Obesity, class 3; Z68.41 - Body mass index [BMI] 40.0-44.9, adult
[2024-11-28] MEDS: ACETAMINOPHEN 1,000 MG/100 ML VIAL IV SCH (09:06)
[2024-11-28] MEDS: KETOROLAC TROMETHAMINE 15 MG/ML VIAL IV SCH (09:07)
[2024-11-28] MEDS: PANTOprazole 40 MG/10 ML SYR IV SCH (09:09)
[2024-11-28] MEDS: TAMSULOSIN HCL 0.4 MG CAP PO SCH (09:09)
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
[2024-11-28 12:28] LABS: Hemoglobin A1C 6.7 % (4.5-5.6)
[2024-11-28] MEDS: LACTATED RINGER'S 1,000 ML IV SCH (13:15)
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
[2024-11-28] MEDS ORDERED: ONDANSETRON INJ 2 MG/ML 2 ML VIAL ONE (14:44)
[2024-11-28] MEDS ORDERED: PROPOFOL IV EMULSION 10 MG/ML 20 ML VIAL IV ONE ×3 (14:44→15:25)
[2024-11-28] MEDS ORDERED: DEXAMETHASONE SOD INJ 4 MG/ML VIAL ONE (14:44)
[2024-11-28] MEDS ORDERED: KETAMINE HCL 10MG/ML SYR ONE (15:13)
[2024-11-28] MEDS ORDERED: MIDAZOLAM HCL 1 MG/ML 2ML VIAL ONE (15:13)
[2024-11-28] MEDS: DIATRIZOATE MEGLUMINE 30% 100ML VIAL INSTIL ONE (15:38)
--- NOTE | 2024-11-28 15:42 | Operative Report ---
PG Post Operative Report Pre & Post Diagnosis Operation Date: 11/28/24 07:00 Pre-Op Diagnosis: Hydronephrosis with obstructing calculus Complicated urinary tract infection Renal colic on right side Post-Op Diagnosis: Hydronephrosis with obstructing calculus Complicated urinary tract infection Renal colic on right side I identified the patient and participated in the time-out.: Yes Procedure Operation Date: 11/28/24 07:00 Actual Procedures p Cystoscopy with Right Aspiration of Kidney, Right Retrograde Pyelogram, and Stent Placement(Right) - Param Nj DO Surgeon Param Nj, II, DO Dividing Machine Operator None Estimated Blood Loss 1 Findings Consistent with Post-Op Diagnosis Stent placed in good position. Specimens Urine for Culture. Drains 6 Fr x 26 cm Anesthesia Type MAC Complications none Disposition Disposition: Recovery Room Indications Patient with obstruction. Risks and benefits discussed at length. Description of Procedure Patient was consented and brought back to the operating room. Patient was placed under anesthesia in the supine position and moved to the dorsal lithotomy position. Patient was prepped and draped in the regular sterile fashion. A time out was completed. A 30degree Cystoscope was placed into the bladder and the entire bladder was examined. The UO's were identified. The UO was cannulized with a catheter and Urine was aspirated from the renal pelvis. The catheter was advanced and a retrograde pyelogram was completed. A wire was then placed. With the wire in place, a 6 Fr Double J stent was placed. It was confirmed with fluoroscopy. With the stent in place, the bladder was emptied. The scope was removed. The patient was cleaned, aroused from anesthesia, and transferred to the pacu in stable condition having tolerated the procedure well with no complications. I was present and participated in all aspects of the procedure. The patient will be monitored in the PACU until transferred. Plan to monitor and continue antibiotics. Will likely set up stone treatment in 1-2 weeks. I attest to the content of the Intraoperative Record and any orders documented therein. Any exceptions are noted below.
--- NOTE | 2024-11-28 15:53 | Anesthesiology Progress Note ---
Date of Service November 28, 2024 Anesthesia Post Procedure Vital Signs Vital Signs: Temp Pulse Pulse Pulse Resp BP BP 11/28/24 15:50 67 12 131/82 11/28/24 15:43 36.0 C L 76 14 135/79 11/28/24 13:06 36.7 C 75 18 142/80 H 11/28/24 11:59 36.5 C 73 18 133/83 11/28/24 08:44 83 11/28/24 07:57 36.6 C 82 18 132/87 11/28/24 05:00 36.7 C 79 18 135/80 11/28/24 00:19 87 11/27/24 23:52 36.6 C 82 18 138/81 11/27/24 21:53 36.8 C 91 H 18 161/69 H 11/27/24 20:00 87 24 138/86 11/27/24 18:58 88 11/27/24 18:36 90 17 11/27/24 18:33 16 150/76 H 11/27/24 18:01 97 H 20 148/88 H 11/27/24 18:00 90 16 11/27/24 17:38 36.6 C 97 H 16 146/78 H Pulse Ox O2 Del Method O2 Flow Rate 11/28/24 15:50 98 Oxymask 7 11/28/24 15:43 98 Oxymask 7 11/28/24 13:06 95 Room Air 11/28/24 11:59 91 Room Air 11/28/24 08:44 11/28/24 07:57 91 Room Air 11/28/24 05:00 92 Room Air 11/28/24 00:19 11/27/24 23:52 94 Room Air 11/27/24 21:53 93 Room Air 11/27/24 20:00 90 Room Air 11/27/24 18:58 11/27/24 18:36 90 11/27/24 18:33 92 Room Air 11/27/24 18:01 92 Room Air 11/27/24 18:00 Room Air 11/27/24 17:38 98 Room Air Pain Intensity Right Flank: Pain Intensity: 1 Transfer of Care Handoff Completed per policy Notes Mental Status: alert / awake / arousable and participated in evaluation Patient Amnestic to Procedure: Yes Nausea / Vomiting: adequately controlled Pain: adequately controlled Airway Patency, RR, SpO2: stable & adequate BP & HR: stable & adequate Hydration State: stable & adequate Anesthetic Complications: no major complications apparent and Pt Satisfied with anesthetic care
[2024-11-28] MEDS ORDERED: Nursing to Pharmacy Communication SCH (16:30)
[2024-11-28] MEDS: DOCUSATE SODIUM 100 MG CAP PO PRN (16:44)
[2024-11-29 07:22] VITALS: PULSE 64; RESP 18; TEMP 97.5; O2SAT 91
--- NOTE | 2024-11-29 07:48 | Hospitalist Progress Note ---
Date of Service November 29, 2024 Assessment & Plan (1) Nephrolithiasis: (2) Acquired hydronephrosis with ureteropelvic junction (UPJ) obstruction: (3) Complicated urinary tract infection: (4) Hydronephrosis with obstructing calculus: (5) Asplenia: (6) Encounter for pre-operative examination: (7) Malignant hyperthermia: (8) Type 2 diabetes mellitus with hyperglycemia: (9) Obesity: Plan in summary this is a 54-year-old female admitted for obstructive nephrolithiasis with a suspected superimposed complicated urinary tract infection Hydronephrosis with obstructing calculus // Complicated urinary tract infection Patient presented with typical renal colic without systemic signs of infection; initial leukocytosis has improved; found on imaging to have a 4 mm obstructive nephrolith in the right system Continue levofloxacin 750 mg po daily for total 10-day course Urology consulted Type II diabetes mellitus with hyperglycemia Resume home diabetic regimen at discharge DVT PPx: SCD Admission and Anticipated Discharge Date Admission Date: November 27, 2024 Subjective Ms. Blanchard is a 54-year-old female whose active medical conditions include hyperlipidemia, hypertension, iron deficiency anemia, type 2 diabetes mellitus, major depressive disorder in sustained remission, irritable bowel syndromediarrhea predominant among other chronic medical conditions who presented to the [facility] on 11/27 due to progressive right flank pain. No acute overnight events; underwent surgical intervention 11/28 without complication, feels well this morning and hopeful for discharge Review of Systems Review of Systems: remaining review of constitutional, pulmonary, cardiovascular, gastrointestinal, genitourinary, musculoskeletal, neurologic, and integumentary systems was unremarkable except for pertinent positive and negative findings noted in the HPI above. Physical Exam Physical Exam: General: Adult female in no acute distress Vital Signs: reviewed HEENT: pupils equally round reactive to light; extraocular motion intact; tacky mucous membranes Neck: Pulmonary: symmetric chest wall excursion; lungs clear to auscultation bilaterally Cardiovascular: regular rate and rhythm without murmurs, rubs, or gallops; S1 and S2 normal; bilateral radial and posterior tibial pulse 2+; trace bilateral lower extremity edema distal to the mid leg Genitourinary: no notable CVA tenderness Neurologic: CN II-XII grossly intact; no discernible focal weakness nor paresthesias Results & Data Results & Data Vital Signs (Past 12 Hours) Vital Signs Temp Pulse Pulse Resp BP BP Pulse Ox 11/29/24 07:21 36.4 C L 64 18 134/85 91 11/29/24 03:00 36.2 C L 67 20 149/87 H 94 11/29/24 00:00 67 11/28/24 23:45 36.6 C 69 18 153/83 H 93 11/28/24 21:17 O2 Del Method O2 Del Method 11/29/24 07:21 Room Air 11/29/24 03:00 Room Air 11/29/24 00:00 11/28/24 23:45 Room Air 11/28/24 21:17 Room Air PG Care Time/CCT Total # of Minutes Spent Total Time Spent with Patient: Total time spent is greater than 50% in coordination of care (as documented) at patient's floor/unit and/or counseling patient: Coding Level of Care Code 80098 SUB INP/OBS CARE 2/35MIN Diagnoses Nephrolithiasis N20.0 Acquired hydronephrosis with ureteropelvic junction (UPJ) obstruction N13.0 Complicated urinary tract infection N39.0 Hydronephrosis with obstructing calculus N13.2 Asplenia Q89.01 Encounter for pre-operative examination Z01.818 Malignant hyperthermia, subsequent encounter T88.3XXD Encounter type: subsequent encounter Type 2 diabetes mellitus with hyperglycemia, without long-term current use of insulin E11.65 Diabetes mellitus shelter insulin use: without professional programmer analyst use Class 3 severe obesity due to excess calories with serious comorbidity and body mass index (BMI) of 40.0 to 44.9 in adult E66.813; Z68.41 Body mass index: BMI 40.0-44.9 Obesity classification: adult class 3 (BMI >= 40) Obesity type: due to excess calories Serious obesity comorbidity presence: with serious comorbidity (7) Malignant hyperthermia Encounter type: subsequent encounter Qualified Code(s): T88.3XXD - Malignant hyperthermia due to anesthesia, subsequent encounter (8) Type 2 diabetes mellitus with hyperglycemia Diabetes mellitus shelter insulin use: without shelter use Qualified Code(s): E11.65 - Type 2 diabetes mellitus with hyperglycemia (9) Obesity Body mass index: BMI 40.0-44.9 Obesity classification: adult class 3 (BMI >= 40) Obesity type: due to excess calories Serious obesity comorbidity presence: with serious comorbidity Qualified Code(s): E66.813 - Obesity, class 3; Z68.41 - Body mass index [BMI] 40.0-44.9, adult
--- NOTE | 2024-11-29 08:11 | Fluoroscopy Report ---
FL retrograde includes kub CLINICAL HISTORY: RIGHT CYSTO STENT COMPARISON STUDY: None FLUOROSCOPY TIME: 17 seconds FLUOROSCOPY IMAGES: 3 EXPOSURE DOSE: 9 mGy FINDINGS: Fluoroscopy was provided for urologic procedure. IMPRESSION: Intraoperative fluoroscopy. ACT 112: Negative or not required by law. Electronically signed by: Mohit Rodriguez M.D. 11/29/2024 8:10 AM
--- NOTE | 2024-11-29 09:09 | Urology Progress Note ---
Date of Service November 29, 2024 Assessment & Plan (1) Hydronephrosis with obstructing calculus: (2) Renal colic on right side: (3) Leukocytosis: (4) Complicated urinary tract infection: Plan POD #1 s/p cystoscopy and right ureteral stent placement. Tolerating the stent with minimal bother. Remains afebrile and hemodynamically stable. Urine and blood cultures preliminary no growth. Right kidney aspirate pending. Continues on levofloxacin. Okay for discharge from standpoint. Continue Flomax. Can also use Pyridium PRN and Oxybutynin PRN for stent management. Continue antibiotics and tailor per final culture sensitivities. Will arrange outpatient follow-up with our service to discuss definitive stone treatment. Urology will sign off. Please contact us with any further questions or concerns. Admission and Anticipated Discharge Date Admission Date: November 27, 2024 Subjective Patient seen at bedside this morning. NAD. Feeling well. Denies f/c/n/v. Tolerating the stent with minimal bother. Reports some hematuria and dysuria with voiding. Eager for discharge home. Review of Systems Constitutional: as per Subjective / HPI Genitourinary: as per Subjective / HPI Physical Exam Constitutional: no acute distress Respiratory: no respiratory distress and no labored breathing Neurologic: moves all extremities and awake Psychiatric: A+Ox3, euthymic affect Results & Data Vital Signs (Past 12 Hours) Vital Signs Temp Pulse Pulse Resp BP BP Pulse Ox 11/29/24 07:21 36.4 C L 64 18 134/85 91 11/29/24 03:00 36.2 C L 67 20 149/87 H 94 11/29/24 00:00 67 11/28/24 23:45 36.6 C 69 18 153/83 H 93 11/28/24 21:17 O2 Del Method O2 Del Method 11/29/24 07:21 Room Air 11/29/24 03:00 Room Air 11/29/24 00:00 11/28/24 23:45 Room Air 11/28/24 21:17 Room Air PG Care Time/CCT Total # of Minutes Spent Total Time Spent with Patient: Total time spent is greater than 50% in coordination of care (as documented) at patient's floor/unit and/or counseling patient: Coding Level of Care Code 26706 SUB INP/OBS CARE 2/35MIN Diagnoses Hydronephrosis with obstructing calculus N13.2 Renal colic on right side N23 Leukocytosis D72.829 Leukocytosis type: unspecified Complicated urinary tract infection N39.0 (3) Leukocytosis Leukocytosis type: unspecified Qualified Code(s): D72.829 - Elevated white blood cell count, unspecified
[2024-11-29 11:34] VITALS: BP 149/87
--- NOTE | 2024-11-30 09:55 | Discharge Summary ---
Discharge Summary Date of Service November 30, 2024 Principal Dx & Hospital Course #1 = Principal Diagnosis (1) Nephrolithiasis: (2) Acquired hydronephrosis with ureteropelvic junction (UPJ) obstruction: (3) Complicated urinary tract infection: (4) Hydronephrosis with obstructing calculus: (5) Asplenia: (6) Encounter for pre-operative examination: (7) Malignant hyperthermia: (8) Type 2 diabetes mellitus with hyperglycemia: (9) Obesity: Plan in summary this is a 54-year-old female admitted for obstructive nephrolithiasis with a suspected superimposed complicated urinary tract infection Hydronephrosis with obstructing calculus // Complicated urinary tract infection Patient presented with typical renal colic without systemic signs of infection; initial leukocytosis has improved; found on imaging to have a 4 mm obstructive nephrolith in the right system Continue levofloxacin 750 mg po daily for total 10-day course Urology consulted Type II diabetes mellitus with hyperglycemia Resume home diabetic regimen at discharge DVT PPx: SCD Admission HPI Per Admitting Provider Patient is a 54-year-old female with past medical history including asplenia, GERD, type II DM, HTN. patient presented to the ED due to renal colic that began on Thursday with progression of pain to constant on Thursday, associated nausea and vomiting, denies any urinary symptoms. UA appears infectious and patient meets SIRS criteria with WBC 21.54 and tachycardia. Diagnostic imaging revealed right hydronephrosis with obstructing stone at proximal right ureter. She is being admitted for IV antibiotics and possible surgical management. Patient seen at bedside. She stated she developed right flank pain Thursday which seemed to come and go and was not severe. This morning she had sharp constant abdominal pain that does wax and wane however does not fully go away. Pain currently 1/10 at bedside. She had associated nausea and vomiting however denies any fevers, chills, chest pain, shortness of breath, dysuria, difficulty urinating, hematuria. She denies nicotine or significant alcohol use. She did not take any of her home medications today. She wishes to be full code. She is agreeable to admission with possible surgical management, discussed possible urological stent placement. Discharge Exam General: Adult female in no acute distress Vital Signs: reviewed HEENT: pupils equally round reactive to light; extraocular motion intact; tacky mucous membranes Pulmonary: symmetric chest wall excursion; lungs clear to auscultation bilaterally Cardiovascular: regular rate and rhythm without murmurs, rubs, or gallops; S1 and S2 normal; bilateral radial and posterior tibial pulse 2+; trace bilateral lower extremity edema distal to the mid leg Genitourinary: no notable CVA tenderness Neurologic: CN II-XII grossly intact; no discernible focal weakness nor paresthesias Discharge Plan Discharge Items Patient Disposition: Home - Self-Care Reason For Visit: INFECTIOUS NEPHROLITHIASIS, SEPSIS Discharge Diagnosis: Right obstructive nephrolithiasis Condition on Discharge: Fair Activity: Resume your previous activity Lifting: Gradually increase as tolerated Bathing: No limitations Sexual Activity: Wait until after follow-up appointment Exercise/Sports: Gradually increase as tolerated Driving/Machine Use: No limitations Weightbearing: Full weightbearing Non-emergency contact: Primary Care Provider and Urologist Call non-emergency contact if: you have any medication questions, your symptoms worsen and you have a fever Follow-up/Referrals: Emmett Fuentes MD [Primary Care Provider] - 12/08/24 2:05 pm (Hopsital follow up scheduled on December 08, 2024 at 2:05pm.) Brock Matute PA-C [Physician Salesperson [employer]] - 12/28/24 9:30 am Diet: Carb Consistent or DM2 and Low Fat Fluids: 1800ml (7 cups) Addtl Attending Provider Instructions: Please maintain close follow up with your PCP and Urologist after hospitalization. Add Lathe Turner Provider Instructions: Please call the urology office at [phone] with any questions, concerns or need to reschedule appointments for any reason. We are happy to assist you. The urology office will contact you to arrange a follow-up visit. While you have a ureteral stent in place: Some discomfort is normal. Certain movements may trigger pain or a feeling that you need to urinate. You may also feel mild soreness or pressure before or during urination. Your urine may be slightly pink or red. This is due to bleeding caused by minor irritation from the stent. This may happen on and off while you have the stent, it is not harmful and is to be expected. Medication to help minimize discomfort or bladder spasms, or to prevent infection may be prescribed. Take this as directed. Drink plenty of fluids to help flush out your urinary tract. When to call [facility] at [phone]: Your urine contains heavy blood clots You are constantly leaking urine Fever of 101F or higher, chills, nausea, or vomiting Your pain is not relieved with medication The end of the stent comes out of your urethra Pending Studies at Discharge: Yes Studies:: Continued assessment of blood cultures Stand-Alone Forms: [facility] Medications and DC Order Prescriptions: New ketorolac 10 mg tablet 10 mg PO Q6H 3 Days Qty: 12 0RF tamsulosin 0.4 mg Capsule 0.4 mg PO QAM 14 Days Qty: 14 0RF levofloxacin 750 mg tablet 750 mg PO DAILY 7 Days Qty: 7 0RF Continued valacyclovir [Valtrex] 500 mg tablet 500 mg PO BID Qty: 180 2RF lamotrigine [Lamictal] 100 mg tablet 100 mg PO DAILY lamotrigine 200 mg tablet 200 mg PO DAILY quetiapine 50 mg tablet 50 mg PO PRN liothyronine 25 mcg tablet 25 mcg PO DAILY montelukast 10 mg tablet 10 mg PO DAILY semaglutide 0.25 mg or 0.5 mg(2 mg/1.5 mL) pen injector subcut Trintellix 20 mg tablet 20 mg PO DAILY cholecalciferol (vitamin D3) 50 mcg (2,000 unit) capsule 50 mcg PO DAILY ferrous sulfate [FeroSul] 325 mg (65 mg iron) tablet 325 mg PO DAILY aspirin [Adult Low Dose Aspirin] 81 mg tablet,delayed release (DR/EC) 81 mg PO DAILY atorvastatin [Lipitor] 10 mg Tablet 10 mg PO QAM dicyclomine 10 mg Capsule 10 mg PO QID PRN (Reason: Abdominal Pain) albuterol sulfate 90 mcg/actuation Hfa Aerosol Inhaler 2 - 4 puff INHALATION QID PRN (Reason: Wheezing) clonazepam 1 mg Tablet 2 mg PO HS multivitamin Tablet 1 tab PO QAM metformin 1,000 mg Tablet 1,000 mg PO BID omeprazole 20 mg Capsule,Delayed Release(Dr/Ec) 20 mg PO BID tretinoin 0.1 % Cream 1 applic TOPICAL HS spironolactone 50 mg Tablet 50 mg PO BID lisinopril 5 mg tablet 5 mg PO DAILY Qty: 30 1RF No Action meloxicam 15 mg tablet 15 mg PO DAILY clindamycin phosphate 1 % Lotion 1 applic TOPICAL BID PRN (Reason: Rash) Discharge Orders: Discharge Order (Routine); Ordered 11/29/24 Ordered By: Montana Rodriguez/Other Patient Handouts: Tamsulosin Oral Capsule, Managing Type 2 Diabetes, Understanding Kidney Stones, Cystoscopy Admission Data Admit Date/Time: 11/27/24 20:15 Attending Provider: Montana Nielson Admit Provider: Timoteo Jo Primary Care Provider: Emmett Fuentes Other Providers: Timoteo Jo; Mook Jensen Other Interventions: Discharge Summary Assessment (RN) Last Done: 11/29/24 11:33 Hospital Stay Data Consultations 11/27/24 19:26 ED Decision to Admit Stat 11/27/24 21:17 Consult Urology Routine Procedures Performed Operation Date: 11/28/24 07:00 Actual Procedures p Cystoscopy Right Retrograde Pyelogram, Stent Placement, aspiration(Right) - Param Nj, DO Diagnostic Imagining Performed 11/27/24 17:54 CT stones [CT abd pelvis wo con] Stat 11/28/24 FL retrograde includes kub Routine Pending Results Patient Have Any Pending Studies at Discharge: Yes Discharge Instructions Given to Patient (Per Discharging Provider) Please maintain close follow up with your PCP and Urologist after hospitalization. Total Time Total Time Spent Total Time Spent (In Minutes): 40 Coding Level of Care Code 56202 INP/OBS DISCH >30 MIN Diagnoses Nephrolithiasis N20.0 Acquired hydronephrosis with ureteropelvic junction (UPJ) obstruction N13.0 Complicated urinary tract infection N39.0 Hydronephrosis with obstructing calculus N13.2 Asplenia Q89.01 Encounter for pre-operative examination Z01.818 Malignant hyperthermia, subsequent encounter T88.3XXD Encounter type: subsequent encounter Type 2 diabetes mellitus with hyperglycemia, without long-term current use of insulin E11.65 Diabetes mellitus technical support 1 software engineer insulin use: without technical support 1 software engineer use Class 3 severe obesity due to excess calories with serious comorbidity and body mass index (BMI) of 40.0 to 44.9 in adult E66.813; Z68.41 Obesity type: due to excess calories Obesity classification: adult class 3 (BMI >= 40) Serious obesity comorbidity presence: with serious comorbidity Body mass index: BMI 40.0-44.9
--- NOTE | 2024-12-02 13:55 | Electrocardiogram Report ---
Test Reason : Blood Pressure : */* mmHG Vent. Rate : 74 BPM Atrial Rate : 74 BPM P-R Int : 200 ms QRS Dur : 88 ms QT Int : 414 ms P-R-T Axes : 55 33 44 degrees QTcB Int : 459 ms Normal sinus rhythm Normal ECG When compared with ECG of 15-Aug-2020 05:31, No significant change was found Confirmed by Omar Ross ([id number]) on 12/02/2024 1:55:08 PM Referred By: REFERRED SELF Confirmed By: Omar Ross
--- NOTE | 2024-12-05 08:51 | Coding Query ---
SEPSIS To promote full compliance with coding requirements relating to patient care, physician participation is requested in all cases of file clerk data entry uncertainty. Please assist us with the question(s) below: In responding to this query, please exercise your independent professional judgement. The fact that a question is asked does not imply that any particular answer is desired or expected. We appreciate your clarification on this issue. Throughout the medical record, you have clearly documented a localized infection and your patient has clinical evidence of a generalized sepsis or severe sepsis. The term urosepsis is a nonspecific entity and is coded as an UTI. If the patient has sepsis, severe sepsis, from an urinary source or some other source, please clarify in your response below. The medical record reflects the following clinical findings: (With dates as appropriate) (Body temperature of >38.3 C(101 F) or <36 C(96.8F), pulse >90/minute, respirations >20/minute, WBC count >12,000 or <4,000, altered mental status, significant edema or positive fluid balance, hyperglycemia without diabetes, hypotension, metabolic acidosis (elev. lactate level, anion gap or reduced blood pH), shock, positive blood culture (enter organism) ____ ()Bacteremia (Nonspecific laboratory finding of bacteria in the blood) Specify Organism () Present on Admission () Not present on admission () Unable to clinically determine () Septicemia (Systemic disease associated with the presence of pathogenic microorganisms in the blood): Specify Organism () Present on Admission () Not present on admission () Unable to clinically determine () Sepsis Specify Organism Specify Associated Condition/Diagnosis () Present on Admission () Not present on admission () Unable to clinically determine () Severe Sepsis (Sepsis associated with acute organ dysfunction) Specify Organism Specify Associated Condition/Diagnosis () Present on Admission () Not present on admission () Unable to clinically determine () Septic Shock (Severe sepsis with acute circulatory failure, unexplained by other causes) () Present on Admission () Not present on admission () Unable to clinically determine () Other, patient has: MTDD
--- NOTE | 2024-12-05 14:30 | Coding Query ---
To promote full compliance with coding requirements relating to patient care, provider participation is requested in all cases of locomotive switch operator uncertainty. Please assist us with the question(s) below: Coding Question(s): The diagnosis(es) below was documented in the ( H&P, progress notes) then subsequently fell off all further documentation. Please indicate if it is still a possible diagnosis or ruled out. Physician's Response(s): SEPSIS ( ) Diagnosed and POA ( ) Diagnosed and not POA ( X ) Ruled out ( ) Other (please specify) MTDD
== END 2024-11-29 12:45 | disposition home or self-care (01) | DRG 661 ==
LOC: ED 17:28 → SUATTDRO 20:15 → 4W 20:15